=== PATIENT | female | born 1965 | race Caucasian/White ===

== ENCOUNTER 2017-08-20 16:21 | Inpatient (IN) | payer OTHER ==
[2017-08-20] MEDS: VANCOMYCIN 1 GM (PMX) 250 ML IVPB (22:30)
[2017-08-21 00:01] LABS: ADD UMIC YES; UR ASCORBIC ACID NEGATIVE (NEGATIVE); UR BACTERIA MODERATE /HPF (NONE SEEN); UR BILIRUBIN (Dip) NEGATIVE (NEGATIVE); UR BLOOD (Dip) NEGATIVE (NEGATIVE); UR CLARITY SLIGHTLY CLOUDY (CLEAR); UR COLOR AMBER (YELLOW); UR GLUCOSE (Dip) NEGATIVE (NEGATIVE); UR KETONES (Dip) NEGATIVE (NEGATIVE); UR LEUKOCYTE ESTERASE (Dip) 1+ Leu/ul (NEGATIVE); UR NITRITE (Dip) POSITIVE (NEGATIVE); UR RBC 3 /HPF (0-5); UR SPECIFIC GRAVITY (Dip) 1.017 (1.003-1.030); UR SQUAMOUS EPITHELIAL CELL FEW /HPF (FEW); UR TOTAL PROTEIN (Dip) NEGATIVE (NEGATIVE); UR UROBILINOGEN (Dip) 2+ mg/dL (NEGATIVE); UR WBC 16 /HPF (0-5)
[2017-08-21 00:39] LABS: BASOPHILS % 0.4 % (0.0-2.0); EOSINOPHILS # 0.1 10^3/ul (0.0-0.5); EOSINOPHILS % 1.5 % (0.0-7.0); HEMATOCRIT 33.1 % (37.0-47.0); LYMPHOCYTES # 2.4 10^3/ul (0.8-2.9); LYMPHOCYTES % 35.5 % (15.0-51.0); MEAN CORPUSCULAR HGB CONC 33.2 g/dl (32.0-37.0); MEAN CORPUSCULAR VOLUME 87.3 fl (82.0-101.0); MEAN PLATELET VOLUME 9.2 fl (7.4-10.4); MONOCYTE # 0.4 10^3/ul (0.3-0.9); MONOCYTES % 5.6 % (0.0-11.0); NEUTROPHIL # 3.8 10^3/ul (1.6-7.5); NEUTROPHILS % 56.9 % (39.0-77.0); PLATELET COUNT 210 10^3/UL (140-415); RED BLOOD COUNT 3.79 10^6/ul (4.20-5.40)
[2017-08-21 00:39] LABS: WHITE BLOOD COUNT 6.7 10^3/ul (4.8-10.8)
[2017-08-21 00:40] LABS: ADD MAN DIFF? NO
[2017-08-21 00:47] LABS: ALANINE AMINOTRANSFERASE 40 IU/L (13-69); ALBUMIN 2.9 g/dl (3.3-4.9); ALBUMIN/GLOBULIN RATIO 0.56; ALKALINE PHOSPHATASE 181 IU/L (42-121); ANION GAP 13 (8-16); ASPARTATE AMINO TRANSFERASE 69 IU/L (15-46); BILIRUBIN,INDIRECT 0.3 mg/dl (0-1.1); BILIRUBIN,TOTAL 0.3 mg/dl (0.2-1.3); BLOOD UREA NITROGEN 10 mg/dl (7-20); CALCIUM 8.7 mg/dl (8.4-10.2); CARBON DIOXIDE 22 mmol/L (21-31); CHLORIDE 109 mmol/L (97-110); CREATININE 0.69 mg/dl (0.44-1.00); GLUCOSE 98 mg/dl (70-220); LIPASE 106 U/L (23-300); POTASSIUM 3.9 mmol/L (3.5-5.1); SODIUM 140 mmol/L (135-144)
[2017-08-21] MEDS ORDERED: ONDANSETRON 4 MG INJ IV (01:00)
[2017-08-21] MEDS ORDERED: ACETAMINOPHEN 325 MG TAB PO (01:00)
[2017-08-21] MEDS: FENTAnyl 50 MCG/ML VIAL IV (01:27)
[2017-08-21] MEDS: CEFEPIME 1GM/50 ML (PMX) 50 ML IVPB (01:40)
[2017-08-21 01:52] LABS: C-REACTIVE PROTEIN > 1.5 mg/dl (0.0-0.9)
[2017-08-21 02:27] LABS: ERYTHROCYTE SEDIMENTATION RATE 65 mm/Hr (0-30)
[2017-08-21] MEDS ORDERED: VANCOMYCIN IV PER PHARMACY XX (05:30)
[2017-08-21] MEDS: PIPER-TAZO 3.375 GM IV (PMX) 50 ML IVPB ×4 (07:05→23:46)
[2017-08-21] MEDS: VANCOMYCIN 1.5 GM in DEXTROSE 5% 500 ML IVPB (08:56)
[2017-08-21] MEDS: morphine 4 MG/ML VIAL IV ×3 (08:57→20:26)
[2017-08-21] MEDS: BACLOFEN 10 MG TAB PO ×2 (12:54→20:25)
[2017-08-21] MEDS: LEVETIRACETAM 250 MG TAB PO ×2 (12:54→20:25)
[2017-08-21] MEDS: GABAPENTIN 300 MG CAP PO ×2 (12:54→20:25)
[2017-08-21] MEDS: ALPRAZOLAM 0.5 MG TAB PO (12:54)
[2017-08-21] MEDS: NICOTINE (21 MG/24 HR) PATCH TRANSDERM (12:55)
[2017-08-21 16:25] LABS: ADD MAN DIFF? NO
[2017-08-21 16:27] LABS: BASOPHILS % 0.5 % (0.0-2.0); EOSINOPHILS % 0.7 % (0.0-7.0); HEMATOCRIT 31.6 % (37.0-47.0); HEMOGLOBIN 10.6 g/dl (12.0-16.0); LYMPHOCYTES # 1.5 10^3/ul (0.8-2.9); LYMPHOCYTES % 26.4 % (15.0-51.0); MEAN CORPUSCULAR HEMOGLOBIN 29.2 pg (29.0-33.0); MEAN CORPUSCULAR HGB CONC 33.5 g/dl (32.0-37.0); MEAN CORPUSCULAR VOLUME 87.1 fl (82.0-101.0); MEAN PLATELET VOLUME 8.8 fl (7.4-10.4); MONOCYTE # 0.4 10^3/ul (0.3-0.9); MONOCYTES % 6.7 % (0.0-11.0); NEUTROPHIL # 3.7 10^3/ul (1.6-7.5); NEUTROPHILS % 65.3 % (39.0-77.0); PLATELET COUNT 189 10^3/UL (140-415); RED BLOOD COUNT 3.63 10^6/ul (4.20-5.40)
[2017-08-21 16:27] LABS: WHITE BLOOD COUNT 5.7 10^3/ul (4.8-10.8)
[2017-08-21 16:50] LABS: ALANINE AMINOTRANSFERASE 40 IU/L (13-69); ALBUMIN 2.8 g/dl (3.3-4.9); ALBUMIN/GLOBULIN RATIO 0.57; ALKALINE PHOSPHATASE 178 IU/L (42-121); ANION GAP 13 (8-16); ASPARTATE AMINO TRANSFERASE 61 IU/L (15-46); BILIRUBIN,INDIRECT 0.5 mg/dl (0-1.1); BILIRUBIN,TOTAL 0.5 mg/dl (0.2-1.3); BLOOD UREA NITROGEN 7 mg/dl (7-20); CALCIUM 8.6 mg/dl (8.4-10.2); CARBON DIOXIDE 20 mmol/L (21-31); CHLORIDE 110 mmol/L (97-110); CREATININE 0.66 mg/dl (0.44-1.00); GLUCOSE 94 mg/dl (70-220); SODIUM 139 mmol/L (135-144); TOTAL PROTEIN 7.7 g/dl (6.1-8.1)
[2017-08-21] MEDS: AMITRIPTYLINE 25 MG TAB PO (20:25)
[2017-08-21] MEDS: DOCUSATE SODIUM 100 MG CAP PO (20:25)
[2017-08-21] MEDS: HYDROmorphONE 2 MG TAB PO (22:00)
[2017-08-22] MEDS: ALPRAZOLAM 0.5 MG TAB PO (00:47)
[2017-08-22] MEDS: morphine 4 MG/ML VIAL IV (00:47)
[2017-08-22 01:39] LABS: AMPHETAMINE/METHAMPHETAMINE Negative (NEGATIVE); BARBITURATES Negative (NEGATIVE); BENZODIAZEPINES Positive (NEGATIVE); CANNABINOIDS Positive (NEGATIVE); COCAINE Negative (NEGATIVE); OPIATES Positive (NEGATIVE)
[2017-08-22] MEDS: HYDROCODONE/APAP (10/325) TAB PO (02:46)
[2017-08-22] MEDS: PIPER-TAZO 3.375 GM IV (PMX) 50 ML IVPB ×3 (06:05→17:03)
[2017-08-22] MEDS: DOCUSATE SODIUM 100 MG CAP PO ×2 (08:35→21:15)
[2017-08-22] MEDS: GABAPENTIN 300 MG CAP PO ×3 (08:35→21:15)
[2017-08-22] MEDS: LEVETIRACETAM 250 MG TAB PO ×2 (08:35→21:15)
[2017-08-22] MEDS: VANCOMYCIN 1.5 GM in DEXTROSE 5% 500 ML IVPB (08:35)
[2017-08-22] MEDS: NICOTINE (21 MG/24 HR) PATCH TRANSDERM (11:50)
[2017-08-22] MEDS: HYDROmorphONE 2 MG TAB PO ×2 (12:16→18:03)
[2017-08-22] MEDS: BACLOFEN 10 MG TAB PO (15:18)
[2017-08-22] MEDS: AMITRIPTYLINE 25 MG TAB PO (21:15)
[2017-08-23] MEDS: PIPER-TAZO 3.375 GM IV (PMX) 50 ML IVPB ×4 (00:19→17:44)
[2017-08-23] MEDS: ALPRAZOLAM 0.5 MG TAB PO (04:39)
[2017-08-23 05:55] LABS: ADD MAN DIFF? NO
[2017-08-23 06:00] LABS: BASOPHILS % 0.8 % (0.0-2.0); EOSINOPHILS # 0.1 10^3/ul (0.0-0.5); EOSINOPHILS % 1.8 % (0.0-7.0); HEMOGLOBIN 10.5 g/dl (12.0-16.0); LYMPHOCYTES # 1.5 10^3/ul (0.8-2.9); LYMPHOCYTES % 31.2 % (15.0-51.0); MEAN CORPUSCULAR HEMOGLOBIN 29.2 pg (29.0-33.0); MEAN CORPUSCULAR HGB CONC 33.9 g/dl (32.0-37.0); MEAN CORPUSCULAR VOLUME 86.4 fl (82.0-101.0); MONOCYTE # 0.5 10^3/ul (0.3-0.9); MONOCYTES % 9.3 % (0.0-11.0); NEUTROPHIL # 2.8 10^3/ul (1.6-7.5); NEUTROPHILS % 56.7 % (39.0-77.0); PLATELET COUNT 165 10^3/UL (140-415); RED BLOOD COUNT 3.59 10^6/ul (4.20-5.40)
[2017-08-23 06:00] LABS: WHITE BLOOD COUNT 4.9 10^3/ul (4.8-10.8)
[2017-08-23] MEDS: HYDROmorphONE 2 MG TAB PO ×3 (06:35→18:26)
[2017-08-23 07:10] LABS: ANION GAP 14 (8-16); BLOOD UREA NITROGEN 7 mg/dl (7-20); CALCIUM 8.1 mg/dl (8.4-10.2); CARBON DIOXIDE 20 mmol/L (21-31); CHLORIDE 111 mmol/L (97-110); CREATININE 0.62 mg/dl (0.44-1.00); GLUCOSE 65 mg/dl (70-220); POTASSIUM 3.5 mmol/L (3.5-5.1); SODIUM 141 mmol/L (135-144)
[2017-08-23] MEDS: VANCOMYCIN 1.5 GM in DEXTROSE 5% 500 ML IVPB (08:13)
[2017-08-23] MEDS: DOCUSATE SODIUM 100 MG CAP PO ×2 (08:13→21:39)
[2017-08-23] MEDS: LEVETIRACETAM 250 MG TAB PO ×2 (08:13→21:39)
[2017-08-23] MEDS: GABAPENTIN 300 MG CAP PO ×3 (08:13→21:39)
[2017-08-23] MEDS: NICOTINE (21 MG/24 HR) PATCH TRANSDERM (11:20)
[2017-08-23] MEDS: BACLOFEN 10 MG TAB PO ×2 (11:40→21:39)
[2017-08-23] MEDS ORDERED: LIDOCAINE 1% (MPF) 5 ML VIAL SC (12:30)
[2017-08-23] MEDS: AMITRIPTYLINE 25 MG TAB PO (21:39)
[2017-08-24] MEDS: PIPER-TAZO 3.375 GM IV (PMX) 50 ML IVPB ×4 (01:05→18:42)
[2017-08-24] MEDS: HYDROmorphONE 2 MG TAB PO ×3 (05:03→21:34)
[2017-08-24 07:41] LABS: ADD MAN DIFF? NO
[2017-08-24 08:00] LABS: WHITE BLOOD COUNT 5.8 10^3/ul (4.8-10.8)
[2017-08-24 08:00] LABS: BASOPHILS % 0.5 % (0.0-2.0); EOSINOPHILS % 0.7 % (0.0-7.0); HEMOGLOBIN 10.9 g/dl (12.0-16.0); LYMPHOCYTES # 1.2 10^3/ul (0.8-2.9); LYMPHOCYTES % 21.2 % (15.0-51.0); MEAN CORPUSCULAR HEMOGLOBIN 29.1 pg (29.0-33.0); MEAN CORPUSCULAR HGB CONC 34.1 g/dl (32.0-37.0); MEAN CORPUSCULAR VOLUME 85.3 fl (82.0-101.0); MEAN PLATELET VOLUME 9.2 fl (7.4-10.4); MONOCYTE # 0.4 10^3/ul (0.3-0.9); MONOCYTES % 7.1 % (0.0-11.0); NEUTROPHIL # 4.1 10^3/ul (1.6-7.5); NEUTROPHILS % 70.2 % (39.0-77.0); PLATELET COUNT 171 10^3/UL (140-415); RED BLOOD COUNT 3.75 10^6/ul (4.20-5.40); RED CELL DISTRIBUTION WIDTH 14.9 % (11.5-14.5)
[2017-08-24 08:18] LABS: ANION GAP 13 (8-16); BLOOD UREA NITROGEN 5 mg/dl (7-20); CALCIUM 8.5 mg/dl (8.4-10.2); CARBON DIOXIDE 21 mmol/L (21-31); CHLORIDE 109 mmol/L (97-110); CREATININE 0.58 mg/dl (0.44-1.00); GLUCOSE 111 mg/dl (70-220); POTASSIUM 3.4 mmol/L (3.5-5.1); SODIUM 140 mmol/L (135-144)
[2017-08-24 08:20] LABS: VANCOMYCIN,TROUGH 12.2 ug/ml (10.0-20.0)
[2017-08-24] MEDS: GABAPENTIN 300 MG CAP PO ×3 (09:08→21:29)
[2017-08-24] MEDS: DOCUSATE SODIUM 100 MG CAP PO ×2 (09:08→21:29)
[2017-08-24] MEDS: VANCOMYCIN 1.5 GM in DEXTROSE 5% 500 ML IVPB (09:08)
[2017-08-24] MEDS: LEVETIRACETAM 250 MG TAB PO ×2 (10:49→21:29)
[2017-08-24] MEDS: clonAZEPAM 0.5 MG TAB PO ×2 (10:49→21:30)
[2017-08-24 12:13] LABS: INR 1.23; PROTIME 15.7 Sec (11.9-14.9); PT RATIO 1.2
[2017-08-24 13:03] LABS: HEPATITIS B SURFACE ANTIGEN NEGATIVE (NEGATIVE)
[2017-08-24 13:42] LABS: HEPATITIS C VIRAL ANTIBODY REACTIVE (NEGATIVE)
[2017-08-24] MEDS: LIDOCAINE 1% (MDV) 20 ML INJ (14:00)
[2017-08-24 14:43] LABS: PARTIAL THROMBOPLASTIN TIME 28.8 Sec (25.0-35.0)
[2017-08-24] MEDS: NICOTINE (21 MG/24 HR) PATCH TRANSDERM (16:55)
[2017-08-24] MEDS: AMITRIPTYLINE 25 MG TAB PO (21:29)
[2017-08-25] MEDS: PIPER-TAZO 3.375 GM IV (PMX) 50 ML IVPB ×5 (00:21→23:09)
[2017-08-25 05:24] LABS: ADD MAN DIFF? NO
[2017-08-25 05:30] LABS: WHITE BLOOD COUNT 5.4 10^3/ul (4.8-10.8)
[2017-08-25 05:30] LABS: BASOPHILS % 0.7 % (0.0-2.0); EOSINOPHILS # 0.1 10^3/ul (0.0-0.5); EOSINOPHILS % 1.5 % (0.0-7.0); HEMATOCRIT 30.8 % (37.0-47.0); HEMOGLOBIN 10.4 g/dl (12.0-16.0); LYMPHOCYTES # 1.8 10^3/ul (0.8-2.9); LYMPHOCYTES % 32.3 % (15.0-51.0); MEAN CORPUSCULAR HEMOGLOBIN 29.3 pg (29.0-33.0); MEAN CORPUSCULAR HGB CONC 33.8 g/dl (32.0-37.0); MEAN CORPUSCULAR VOLUME 86.8 fl (82.0-101.0); MEAN PLATELET VOLUME 9.1 fl (7.4-10.4); MONOCYTE # 0.5 10^3/ul (0.3-0.9); MONOCYTES % 9.6 % (0.0-11.0); NEUTROPHILS % 55.7 % (39.0-77.0); PLATELET COUNT 145 10^3/UL (140-415); RED BLOOD COUNT 3.55 10^6/ul (4.20-5.40); RED CELL DISTRIBUTION WIDTH 15.3 % (11.5-14.5)
[2017-08-25 06:04] LABS: ANION GAP 14 (8-16); BLOOD UREA NITROGEN 6 mg/dl (7-20); CALCIUM 8.6 mg/dl (8.4-10.2); CARBON DIOXIDE 22 mmol/L (21-31); CHLORIDE 110 mmol/L (97-110); CREATININE 0.62 mg/dl (0.44-1.00); GLUCOSE 69 mg/dl (70-220); POTASSIUM 3.4 mmol/L (3.5-5.1); SODIUM 143 mmol/L (135-144)
[2017-08-25] MEDS: VANCOMYCIN 1.5 GM in DEXTROSE 5% 500 ML IVPB ×2 (08:00→17:23)
[2017-08-25] MEDS: LEVETIRACETAM 250 MG TAB PO ×2 (08:18→20:18)
[2017-08-25] MEDS: HYDROmorphONE 2 MG TAB PO ×2 (08:18→19:13)
[2017-08-25] MEDS: DOCUSATE SODIUM 100 MG CAP PO ×2 (08:18→20:18)
[2017-08-25] MEDS: GABAPENTIN 300 MG CAP PO ×3 (08:18→20:18)
[2017-08-25] MEDS: clonAZEPAM 0.5 MG TAB PO ×2 (08:20→20:20)
[2017-08-25] MEDS: POTASSIUM CHLORIDE (SR) 20 MEQ TAB PO (10:36)
[2017-08-25] MEDS: NICOTINE (21 MG/24 HR) PATCH TRANSDERM (10:37)
[2017-08-25] MEDS: BACLOFEN 10 MG TAB PO (20:23)
[2017-08-25] MEDS: AMITRIPTYLINE 25 MG TAB PO (20:23)
[2017-08-26] MEDS: POLYETHYLENE GLYCOL 17 GM PACKET PO (05:01)
[2017-08-26] MEDS: PIPER-TAZO 3.375 GM IV (PMX) 50 ML IVPB (05:01)
[2017-08-26] MEDS: HYDROmorphONE 2 MG TAB PO ×3 (05:30→20:46)
[2017-08-26] MEDS: ALPRAZOLAM 0.5 MG TAB PO ×2 (05:30→16:54)
[2017-08-26 05:34] LABS: ADD MAN DIFF? NO
[2017-08-26 05:40] LABS: BASOPHILS % 0.6 % (0.0-2.0); EOSINOPHILS # 0.1 10^3/ul (0.0-0.5); EOSINOPHILS % 1.9 % (0.0-7.0); HEMATOCRIT 32.4 % (37.0-47.0); HEMOGLOBIN 10.5 g/dl (12.0-16.0); LYMPHOCYTES # 1.4 10^3/ul (0.8-2.9); LYMPHOCYTES % 29.1 % (15.0-51.0); MEAN CORPUSCULAR HEMOGLOBIN 29.2 pg (29.0-33.0); MEAN CORPUSCULAR HGB CONC 32.4 g/dl (32.0-37.0); MEAN PLATELET VOLUME 9.5 fl (7.4-10.4); MONOCYTE # 0.5 10^3/ul (0.3-0.9); MONOCYTES % 10.3 % (0.0-11.0); NEUTROPHIL # 2.8 10^3/ul (1.6-7.5); NEUTROPHILS % 57.9 % (39.0-77.0); PLATELET COUNT 144 10^3/UL (140-415); RED CELL DISTRIBUTION WIDTH 15.6 % (11.5-14.5)
[2017-08-26 05:40] LABS: WHITE BLOOD COUNT 4.9 10^3/ul (4.8-10.8)
[2017-08-26 06:18] LABS: ANION GAP 10 (8-16); BLOOD UREA NITROGEN 4 mg/dl (7-20); CALCIUM 8.3 mg/dl (8.4-10.2); CARBON DIOXIDE 23 mmol/L (21-31); CHLORIDE 110 mmol/L (97-110); CREATININE 0.55 mg/dl (0.44-1.00); GLUCOSE 100 mg/dl (70-220); POTASSIUM 3.4 mmol/L (3.5-5.1); SODIUM 140 mmol/L (135-144)
[2017-08-26] MEDS: LEVETIRACETAM 250 MG TAB PO ×2 (08:42→20:46)
[2017-08-26] MEDS: GABAPENTIN 300 MG CAP PO ×3 (08:42→20:46)
[2017-08-26] MEDS: DOCUSATE SODIUM 100 MG CAP PO ×2 (08:43→20:45)
[2017-08-26] MEDS: clonAZEPAM 0.5 MG TAB PO (08:47)
[2017-08-26] MEDS: BACLOFEN 10 MG TAB PO ×2 (08:47→20:51)
[2017-08-26] MEDS: CEFTRIAXONE 1 GM/50 ML (PMX) 50 ML IVPB (09:52)
[2017-08-26] MEDS: NICOTINE (21 MG/24 HR) PATCH TRANSDERM (11:04)
[2017-08-26] MEDS: VANCOMYCIN 1.5 GM in DEXTROSE 5% 500 ML IVPB (17:29)
[2017-08-26] MEDS: AMITRIPTYLINE 25 MG TAB PO (20:45)
[2017-08-27] MEDS: ALPRAZOLAM 0.5 MG TAB PO ×2 (00:03→09:39)
[2017-08-27] MEDS: POLYETHYLENE GLYCOL 17 GM PACKET PO (04:38)
[2017-08-27] MEDS: HYDROmorphONE 2 MG TAB PO ×2 (04:38→13:57)
[2017-08-27] MEDS: BACLOFEN 10 MG TAB PO ×2 (04:39→16:48)
[2017-08-27 05:04] LABS: ADD MAN DIFF? NO
[2017-08-27 05:14] LABS: WHITE BLOOD COUNT 4.8 10^3/ul (4.8-10.8)
[2017-08-27 05:14] LABS: BASOPHILS % 0.6 % (0.0-2.0); EOSINOPHILS # 0.1 10^3/ul (0.0-0.5); EOSINOPHILS % 1.9 % (0.0-7.0); HEMATOCRIT 32.8 % (37.0-47.0); HEMOGLOBIN 10.7 g/dl (12.0-16.0); LYMPHOCYTES # 1.4 10^3/ul (0.8-2.9); LYMPHOCYTES % 29.8 % (15.0-51.0); MEAN CORPUSCULAR HEMOGLOBIN 29.1 pg (29.0-33.0); MEAN CORPUSCULAR HGB CONC 32.6 g/dl (32.0-37.0); MEAN CORPUSCULAR VOLUME 89.1 fl (82.0-101.0); MEAN PLATELET VOLUME 9.2 fl (7.4-10.4); MONOCYTE # 0.5 10^3/ul (0.3-0.9); MONOCYTES % 10.4 % (0.0-11.0); NEUTROPHIL # 2.8 10^3/ul (1.6-7.5); NEUTROPHILS % 56.9 % (39.0-77.0); PLATELET COUNT 137 10^3/UL (140-415); RED BLOOD COUNT 3.68 10^6/ul (4.20-5.40); RED CELL DISTRIBUTION WIDTH 16.1 % (11.5-14.5)
[2017-08-27 05:50] LABS: ANION GAP 9 (8-16); BLOOD UREA NITROGEN 3 mg/dl (7-20); CALCIUM 8.7 mg/dl (8.4-10.2); CARBON DIOXIDE 25 mmol/L (21-31); CHLORIDE 111 mmol/L (97-110); CREATININE 0.54 mg/dl (0.44-1.00); GLUCOSE 104 mg/dl (70-220); POTASSIUM 3.4 mmol/L (3.5-5.1); SODIUM 142 mmol/L (135-144)
[2017-08-27] MEDS: LEVETIRACETAM 250 MG TAB PO ×2 (09:34→20:26)
[2017-08-27] MEDS: GABAPENTIN 300 MG CAP PO ×3 (09:34→20:26)
[2017-08-27] MEDS: DOCUSATE SODIUM 100 MG CAP PO ×2 (09:34→20:25)
[2017-08-27] MEDS: CEFTRIAXONE 1 GM/50 ML (PMX) 50 ML IVPB (09:39)
[2017-08-27] MEDS: NICOTINE (21 MG/24 HR) PATCH TRANSDERM (13:57)
[2017-08-27] MEDS: VANCOMYCIN 1.5 GM in DEXTROSE 5% 500 ML IVPB (17:10)
[2017-08-27] MEDS: AMITRIPTYLINE 25 MG TAB PO (20:26)
[2017-08-28] MEDS: ALPRAZOLAM 0.5 MG TAB PO ×2 (00:10→13:37)
[2017-08-28] MEDS: HYDROmorphONE 2 MG TAB PO ×3 (00:10→18:23)
[2017-08-28] MEDS: BACLOFEN 10 MG TAB PO ×2 (05:12→21:04)
[2017-08-28] MEDS: POLYETHYLENE GLYCOL 17 GM PACKET PO (05:12)
[2017-08-28] MEDS: DOCUSATE SODIUM 100 MG CAP PO ×2 (09:32→20:58)
[2017-08-28] MEDS: GABAPENTIN 300 MG CAP PO ×3 (09:32→20:58)
[2017-08-28] MEDS: LEVETIRACETAM 250 MG TAB PO ×2 (09:32→20:58)
[2017-08-28] MEDS: CEFTRIAXONE 1 GM/50 ML (PMX) 50 ML IVPB (09:32)
[2017-08-28] MEDS: NICOTINE (21 MG/24 HR) PATCH TRANSDERM (10:53)
[2017-08-28] MEDS: FENTAnyl PATCH 75 MCG/HR TRANSDERM (11:09)
[2017-08-28 17:26] LABS: VANCOMYCIN,TROUGH 11.2 ug/ml (10.0-20.0)
[2017-08-28] MEDS: VANCOMYCIN 1.5 GM in DEXTROSE 5% 500 ML IVPB (18:23)
[2017-08-28] MEDS: AMITRIPTYLINE 25 MG TAB PO (20:58)
[2017-08-29] MEDS: ALPRAZOLAM 0.5 MG TAB PO ×3 (00:51→18:25)
[2017-08-29] MEDS: HYDROmorphONE 2 MG TAB PO ×3 (00:52→18:25)
[2017-08-29] MEDS: DOCUSATE SODIUM 100 MG CAP PO ×2 (08:31→21:29)
[2017-08-29] MEDS: LEVETIRACETAM 250 MG TAB PO ×2 (08:31→21:29)
[2017-08-29] MEDS: GABAPENTIN 300 MG CAP PO ×3 (08:31→21:29)
[2017-08-29] MEDS: CEFTRIAXONE 1 GM/50 ML (PMX) 50 ML IVPB (08:32)
[2017-08-29] MEDS: NICOTINE (21 MG/24 HR) PATCH TRANSDERM (12:58)
[2017-08-29] MEDS ORDERED: VANCOMYCIN 1.75 GM in NS 500 ML IVPB (18:00)
[2017-08-29] MEDS: AMITRIPTYLINE 25 MG TAB PO (21:29)
[2017-08-29] MEDS: VANCOMYCIN 1.75 GM in DEXTROSE 5% 500 ML IVPB (21:29)
[2017-08-30 06:03] LABS: BLOOD UREA NITROGEN 8 mg/dl (7-20)
[2017-08-30 06:03] LABS: CREATININE 0.58 mg/dl (0.44-1.00)
[2017-08-30] MEDS: HYDROmorphONE 2 MG TAB PO ×2 (06:49→16:04)
[2017-08-30] MEDS: ALPRAZOLAM 0.5 MG TAB PO ×2 (06:53→20:56)
[2017-08-30] MEDS ORDERED: VANCOMYCIN 1.75 GM in SOD CHLORIDE 0.9% 500 ML IVPB (08:58)
[2017-08-30] MEDS: CEFTRIAXONE 1 GM/50 ML (PMX) 50 ML IVPB (09:25)
[2017-08-30] MEDS: GABAPENTIN 300 MG CAP PO ×3 (09:25→20:56)
[2017-08-30] MEDS: DOCUSATE SODIUM 100 MG CAP PO ×2 (09:25→20:56)
[2017-08-30] MEDS: LEVETIRACETAM 250 MG TAB PO ×2 (09:25→20:57)
[2017-08-30] MEDS: NICOTINE (21 MG/24 HR) PATCH TRANSDERM (10:45)
[2017-08-30] MEDS: BACLOFEN 10 MG TAB PO ×2 (16:07→22:03)
[2017-08-30] MEDS: VANCOMYCIN 1.75 GM in SOD CHLORIDE 0.9% 500 ML IVPB (18:12)
[2017-08-30] MEDS: AMITRIPTYLINE 25 MG TAB PO (20:56)
[2017-08-31] MEDS: HYDROmorphONE 2 MG TAB PO ×3 (01:59→15:37)
[2017-08-31 06:44] LABS: ALBUMIN 2.6 g/dl (3.3-4.9); ANION GAP 11 (8-16); BLOOD UREA NITROGEN 8 mg/dl (7-20); CALCIUM 8.2 mg/dl (8.4-10.2); CARBON DIOXIDE 24 mmol/L (21-31); CHLORIDE 109 mmol/L (97-110); CREATININE 0.61 mg/dl (0.44-1.00); GLUCOSE 119 mg/dl (70-220); MAGNESIUM 1.8 mg/dl (1.7-2.5); PHOSPHORUS 3.6 mg/dl (2.5-4.9); POTASSIUM 3.4 mmol/L (3.5-5.1); SODIUM 141 mmol/L (135-144)
[2017-08-31] MEDS: GABAPENTIN 300 MG CAP PO ×3 (08:00→20:49)
[2017-08-31] MEDS: DOCUSATE SODIUM 100 MG CAP PO ×2 (08:00→20:49)
[2017-08-31] MEDS: ALPRAZOLAM 0.5 MG TAB PO (08:00)
[2017-08-31] MEDS: LEVETIRACETAM 250 MG TAB PO ×2 (08:00→20:49)
[2017-08-31] MEDS: CEFTRIAXONE 1 GM/50 ML (PMX) 50 ML IVPB (10:05)
[2017-08-31] MEDS: NICOTINE (21 MG/24 HR) PATCH TRANSDERM (11:38)
[2017-08-31] MEDS: FENTAnyl PATCH 75 MCG/HR TRANSDERM (11:39)
[2017-08-31] MEDS: BACLOFEN 10 MG TAB PO (15:33)
[2017-08-31] MEDS: SOD CHLORIDE 0.9% IVPB (15:38)
[2017-08-31] MEDS: DAPTOMYCIN IVPB (15:38)
[2017-08-31] MEDS: AMITRIPTYLINE 25 MG TAB PO (20:49)
[2017-08-31] MEDS: CARBAMIDE PEROXIDE 6.5% 15ML OTIC BOTH EARS (20:49)
[2017-09-01] MEDS: ALPRAZOLAM 0.5 MG TAB PO ×3 (00:17→20:28)
[2017-09-01] MEDS: HYDROmorphONE 2 MG TAB PO ×4 (00:18→18:58)
[2017-09-01] MEDS: BACLOFEN 10 MG TAB PO ×3 (01:35→20:28)
[2017-09-01 07:09] LABS: CREATINE KINASE 115 IU/L (23-200)
[2017-09-01] MEDS: DOCUSATE SODIUM 100 MG CAP PO ×2 (08:17→20:28)
[2017-09-01] MEDS: GABAPENTIN 300 MG CAP PO ×3 (08:17→20:28)
[2017-09-01] MEDS: LEVETIRACETAM 250 MG TAB PO ×2 (08:17→20:28)
[2017-09-01] MEDS: CARBAMIDE PEROXIDE 6.5% 15ML OTIC BOTH EARS ×3 (08:20→20:29)
[2017-09-01] MEDS: CEFTRIAXONE 1 GM/50 ML (PMX) 50 ML IVPB (09:42)
[2017-09-01] MEDS: NICOTINE (21 MG/24 HR) PATCH TRANSDERM (11:53)
[2017-09-01] MEDS: DAPTOMYCIN IVPB (15:11)
[2017-09-01] MEDS: SOD CHLORIDE 0.9% IVPB (15:11)
[2017-09-01] MEDS: AMITRIPTYLINE 25 MG TAB PO (20:28)
[2017-09-02] MEDS: HYDROmorphONE 2 MG TAB PO ×3 (06:45→22:51)
[2017-09-02] MEDS: LEVETIRACETAM 250 MG TAB PO ×2 (08:19→19:48)
[2017-09-02] MEDS: ALPRAZOLAM 0.5 MG TAB PO ×2 (08:19→18:48)
[2017-09-02] MEDS: GABAPENTIN 300 MG CAP PO ×3 (08:19→19:48)
[2017-09-02] MEDS: DOCUSATE SODIUM 100 MG CAP PO ×2 (08:19→19:48)
[2017-09-02] MEDS: CARBAMIDE PEROXIDE 6.5% 15ML OTIC BOTH EARS ×2 (08:20→19:47)
[2017-09-02] MEDS: CEFTRIAXONE 1 GM/50 ML (PMX) 50 ML IVPB (09:08)
[2017-09-02] MEDS: NICOTINE (21 MG/24 HR) PATCH TRANSDERM (10:52)
[2017-09-02] MEDS: DAPTOMYCIN IVPB (15:02)
[2017-09-02] MEDS: SOD CHLORIDE 0.9% IVPB (15:02)
[2017-09-02] MEDS: PANTOPRAZOLE (EC) 40 MG TAB PO (15:09)
[2017-09-02] MEDS: BACLOFEN 10 MG TAB PO (15:09)
[2017-09-02] MEDS ORDERED: POTASSIUM CHLORIDE 50 ML IVPB (18:30)
[2017-09-02 19:04] LABS: ADD UMIC YES; UR ASCORBIC ACID NEGATIVE (NEGATIVE); UR BILIRUBIN (Dip) NEGATIVE (NEGATIVE); UR BLOOD (Dip) 1+ mg/dL (NEGATIVE); UR CLARITY SLIGHTLY CLOUDY (CLEAR); UR COLOR YELLOW (YELLOW); UR GLUCOSE (Dip) NEGATIVE (NEGATIVE); UR KETONES (Dip) NEGATIVE (NEGATIVE); UR LEUKOCYTE ESTERASE (Dip) 3+ Leu/ul (NEGATIVE); UR NITRITE (Dip) NEGATIVE (NEGATIVE); UR RBC 7 /HPF (0-5); UR SQUAMOUS EPITHELIAL CELL FEW /HPF (FEW); UR TOTAL PROTEIN (Dip) NEGATIVE (NEGATIVE); UR UROBILINOGEN (Dip) NEGATIVE (NEGATIVE); UR WBC 110 /HPF (0-5)
[2017-09-02] MEDS: AMITRIPTYLINE 25 MG TAB PO (19:48)
[2017-09-02] MEDS: POTASSIUM CHLORIDE 50 ML IVPB ×2 (20:38→22:51)
[2017-09-03] MEDS: POTASSIUM CHLORIDE 50 ML IVPB (01:11)
[2017-09-03] MEDS: ALPRAZOLAM 0.5 MG TAB PO ×2 (04:34→23:57)
[2017-09-03 06:32] LABS: ADD MAN DIFF? NO
[2017-09-03 06:44] LABS: BASOPHIL # 0.1 10^3/ul (0.0-0.1); BASOPHILS % 0.8 % (0.0-2.0); EOSINOPHILS # 0.1 10^3/ul (0.0-0.5); EOSINOPHILS % 2.3 % (0.0-7.0); HEMATOCRIT 30.7 % (37.0-47.0); LYMPHOCYTES # 2.7 10^3/ul (0.8-2.9); LYMPHOCYTES % 45.7 % (15.0-51.0); MEAN CORPUSCULAR HEMOGLOBIN 29.9 pg (29.0-33.0); MEAN CORPUSCULAR HGB CONC 32.6 g/dl (32.0-37.0); MEAN CORPUSCULAR VOLUME 91.9 fl (82.0-101.0); MEAN PLATELET VOLUME 10.1 fl (7.4-10.4); MONOCYTE # 0.7 10^3/ul (0.3-0.9); MONOCYTES % 11.9 % (0.0-11.0); NEUTROPHIL # 2.3 10^3/ul (1.6-7.5); PLATELET COUNT 126 10^3/UL (140-415); RED BLOOD COUNT 3.34 10^6/ul (4.20-5.40); RED CELL DISTRIBUTION WIDTH 16.9 % (11.5-14.5)
[2017-09-03] MEDS: HYDROmorphONE 2 MG TAB PO ×3 (06:59→18:59)
[2017-09-03 07:27] LABS: ANION GAP 17 (8-16); BLOOD UREA NITROGEN 7 mg/dl (7-20); CALCIUM 8.2 mg/dl (8.4-10.2); CARBON DIOXIDE 22 mmol/L (21-31); CHLORIDE 110 mmol/L (97-110); CREATININE 0.61 mg/dl (0.44-1.00); GLUCOSE 115 mg/dl (70-220); POTASSIUM 4.5 mmol/L (3.5-5.1); SODIUM 144 mmol/L (135-144)
[2017-09-03] MEDS: CARBAMIDE PEROXIDE 6.5% 15ML OTIC BOTH EARS ×2 (08:28→20:14)
[2017-09-03] MEDS: LEVETIRACETAM 250 MG TAB PO ×2 (08:29→20:15)
[2017-09-03] MEDS: DOCUSATE SODIUM 100 MG CAP PO ×2 (08:29→20:15)
[2017-09-03] MEDS: GABAPENTIN 300 MG CAP PO ×3 (08:29→20:15)
[2017-09-03] MEDS: CEFTRIAXONE 1 GM/50 ML (PMX) 50 ML IVPB (08:30)
[2017-09-03] MEDS: BACLOFEN 10 MG TAB PO ×2 (08:30→18:59)
[2017-09-03] MEDS: FENTAnyl PATCH 75 MCG/HR TRANSDERM (09:28)
[2017-09-03] MEDS: NICOTINE (21 MG/24 HR) PATCH TRANSDERM (11:34)
[2017-09-03] MEDS: SOD CHLORIDE 0.9% IVPB (14:33)
[2017-09-03] MEDS: DAPTOMYCIN IVPB (14:33)
[2017-09-03] MEDS: AMITRIPTYLINE 25 MG TAB PO (20:15)
[2017-09-04] MEDS: HYDROmorphONE 2 MG TAB PO ×5 (03:08→23:25)
[2017-09-04 05:25] LABS: ADD MAN DIFF? NO
[2017-09-04 05:32] LABS: BASOPHILS % 0.6 % (0.0-2.0); EOSINOPHILS # 0.1 10^3/ul (0.0-0.5); EOSINOPHILS % 2.1 % (0.0-7.0); HEMATOCRIT 27.7 % (37.0-47.0); LYMPHOCYTES % 40.7 % (15.0-51.0); MEAN CORPUSCULAR HEMOGLOBIN 29.7 pg (29.0-33.0); MEAN CORPUSCULAR HGB CONC 32.5 g/dl (32.0-37.0); MEAN CORPUSCULAR VOLUME 91.4 fl (82.0-101.0); MEAN PLATELET VOLUME 10.2 fl (7.4-10.4); MONOCYTE # 0.6 10^3/ul (0.3-0.9); MONOCYTES % 13.1 % (0.0-11.0); NEUTROPHIL # 2.1 10^3/ul (1.6-7.5); NEUTROPHILS % 43.1 % (39.0-77.0); PLATELET COUNT 104 10^3/UL (140-415); RED BLOOD COUNT 3.03 10^6/ul (4.20-5.40); RED CELL DISTRIBUTION WIDTH 16.9 % (11.5-14.5)
[2017-09-04 05:32] LABS: WHITE BLOOD COUNT 4.9 10^3/ul (4.8-10.8)
[2017-09-04 06:01] LABS: ANION GAP 12 (8-16); BLOOD UREA NITROGEN 7 mg/dl (7-20); CALCIUM 8.6 mg/dl (8.4-10.2); CARBON DIOXIDE 25 mmol/L (21-31); CHLORIDE 109 mmol/L (97-110); CREATININE 0.66 mg/dl (0.44-1.00); GLUCOSE 118 mg/dl (70-220); POTASSIUM 3.7 mmol/L (3.5-5.1); SODIUM 142 mmol/L (135-144)
[2017-09-04] MEDS: DOCUSATE SODIUM 100 MG CAP PO ×2 (07:55→20:42)
[2017-09-04] MEDS: LEVETIRACETAM 250 MG TAB PO ×2 (08:46→20:33)
[2017-09-04] MEDS: CARBAMIDE PEROXIDE 6.5% 15ML OTIC BOTH EARS ×2 (08:46→20:34)
[2017-09-04] MEDS: GABAPENTIN 300 MG CAP PO ×3 (08:47→20:32)
[2017-09-04] MEDS: CEFTRIAXONE 1 GM/50 ML (PMX) 50 ML IVPB (08:47)
[2017-09-04] MEDS: ALPRAZOLAM 0.5 MG TAB PO ×2 (09:28→20:33)
[2017-09-04] MEDS: PANTOPRAZOLE (EC) 40 MG TAB PO (09:44)
[2017-09-04] MEDS: NICOTINE (21 MG/24 HR) PATCH TRANSDERM (12:31)
[2017-09-04] MEDS: BACLOFEN 10 MG TAB PO (15:27)
[2017-09-04] MEDS: FLUCONAZOLE 100 MG TAB PO (15:27)
[2017-09-04] MEDS: SOD CHLORIDE 0.9% IVPB (19:04)
[2017-09-04] MEDS: DAPTOMYCIN IVPB (19:04)
[2017-09-04] MEDS: AMITRIPTYLINE 25 MG TAB PO (20:38)
[2017-09-05] MEDS: ALPRAZOLAM 0.5 MG TAB PO ×2 (04:55→20:11)
[2017-09-05] MEDS: HYDROmorphONE 2 MG TAB PO ×3 (04:56→17:29)
[2017-09-05 05:14] LABS: ABNORMAL IP MESSAGE 1; HEMATOCRIT 25.1 % (37.0-47.0); HEMOGLOBIN 7.9 g/dl (12.0-16.0); MEAN CORPUSCULAR HGB CONC 31.5 g/dl (32.0-37.0); MEAN CORPUSCULAR VOLUME 92.3 fl (82.0-101.0); MEAN PLATELET VOLUME 9.9 fl (7.4-10.4); PLATELET COUNT 95 10^3/UL (140-415); RED BLOOD COUNT 2.72 10^6/ul (4.20-5.40); RED CELL DISTRIBUTION WIDTH 16.8 % (11.5-14.5)
[2017-09-05 05:14] LABS: WHITE BLOOD COUNT 3.5 10^3/ul (4.8-10.8)
[2017-09-05 05:29] LABS: ADD MAN DIFF? YES; POSITIVE DIFF @See below
[2017-09-05 06:05] LABS: ANION GAP 10 (8-16); BLOOD UREA NITROGEN 7 mg/dl (7-20); CALCIUM 7.2 mg/dl (8.4-10.2); CARBON DIOXIDE 22 mmol/L (21-31); CHLORIDE 115 mmol/L (97-110); CREATININE 0.52 mg/dl (0.44-1.00); GLUCOSE 87 mg/dl (70-220); POTASSIUM 3.4 mmol/L (3.5-5.1); SODIUM 144 mmol/L (135-144)
[2017-09-05] MEDS: FLUCONAZOLE 100 MG TAB PO (08:30)
[2017-09-05] MEDS: LEVETIRACETAM 250 MG TAB PO ×2 (08:30→20:12)
[2017-09-05] MEDS: DOCUSATE SODIUM 100 MG CAP PO ×2 (08:30→20:12)
[2017-09-05] MEDS: GABAPENTIN 300 MG CAP PO ×3 (08:30→20:11)
[2017-09-05] MEDS: CARBAMIDE PEROXIDE 6.5% 15ML OTIC BOTH EARS (08:31)
[2017-09-05] MEDS: CEFTRIAXONE 1 GM/50 ML (PMX) 50 ML IVPB (10:20)
[2017-09-05 10:32] LABS: ANISOCYTOSIS 1+ (0-0); BAND NEUTROPHILS % (M) 1 % (0-4); BASOPHIL #M 0.1 10^3/ul (0.0-0.0); BASOPHILS % (M) 3 % (0-2); EOSINOPHILS % (M) 2 % (0-7); LYMPHOCYTES #M 1.2 10^3/ul (0.8-2.9); LYMPHOCYTES % (M) 36 % (15-51); MONOCYTE #M 0.2 10^3/ul (0.3-0.9); MONOCYTES % (M) 7 % (0-11); PLATELET ESTIMATE DECREASED; SEG NEUT #M 1.8 10^3/ul (1.7-7.5); SEGMENTED NEUTROPHILS (M) % 51 % (39-77); SMUDGE%M 12 % (0-0)
[2017-09-05] MEDS: NICOTINE (21 MG/24 HR) PATCH TRANSDERM (12:45)
[2017-09-05] MEDS: DAPTOMYCIN IVPB (15:57)
[2017-09-05] MEDS: SOD CHLORIDE 0.9% IVPB (15:57)
[2017-09-05] MEDS: BACLOFEN 10 MG TAB PO (20:11)
[2017-09-05] MEDS: AMITRIPTYLINE 25 MG TAB PO (20:12)
[2017-09-06] MEDS: HYDROmorphONE 2 MG TAB PO ×4 (00:11→18:50)
[2017-09-06] MEDS: AMITRIPTYLINE 25 MG TAB PO ×2 (00:12→20:37)
[2017-09-06] MEDS: PANTOPRAZOLE (EC) 40 MG TAB PO (03:23)
[2017-09-06] MEDS: ALPRAZOLAM 0.5 MG TAB PO ×3 (03:27→21:02)
[2017-09-06 05:37] LABS: ADD MAN DIFF? NO
[2017-09-06 05:44] LABS: WHITE BLOOD COUNT 4.4 10^3/ul (4.8-10.8)
[2017-09-06 05:44] LABS: ABNORMAL IP MESSAGE 1; BASOPHILS % 0.5 % (0.0-2.0); EOSINOPHILS # 0.1 10^3/ul (0.0-0.5); EOSINOPHILS % 2.7 % (0.0-7.0); HEMATOCRIT 27.5 % (37.0-47.0); LYMPHOCYTES % 44.6 % (15.0-51.0); MEAN CORPUSCULAR HEMOGLOBIN 30.1 pg (29.0-33.0); MEAN CORPUSCULAR HGB CONC 32.7 g/dl (32.0-37.0); MEAN PLATELET VOLUME 9.9 fl (7.4-10.4); MONOCYTE # 0.5 10^3/ul (0.3-0.9); MONOCYTES % 11.9 % (0.0-11.0); NEUTROPHIL # 1.8 10^3/ul (1.6-7.5); NEUTROPHILS % 40.1 % (39.0-77.0); PLATELET COUNT 98 10^3/UL (140-415); RED BLOOD COUNT 2.99 10^6/ul (4.20-5.40); RED CELL DISTRIBUTION WIDTH 16.9 % (11.5-14.5)
[2017-09-06 06:00] LABS: POSITIVE DIFF @See below
[2017-09-06 06:26] LABS: ANION GAP 12 (8-16); BLOOD UREA NITROGEN 8 mg/dl (7-20); CALCIUM 8.3 mg/dl (8.4-10.2); CARBON DIOXIDE 25 mmol/L (21-31); CHLORIDE 109 mmol/L (97-110); CREATININE 0.68 mg/dl (0.44-1.00); GLUCOSE 103 mg/dl (70-220); POTASSIUM 3.8 mmol/L (3.5-5.1); SODIUM 142 mmol/L (135-144)
[2017-09-06] MEDS: DOCUSATE SODIUM 100 MG CAP PO ×2 (09:00→21:00)
[2017-09-06] MEDS: LEVETIRACETAM 250 MG TAB PO ×2 (09:35→20:34)
[2017-09-06] MEDS: CEFTRIAXONE 1 GM/50 ML (PMX) 50 ML IVPB (09:35)
[2017-09-06] MEDS: BACLOFEN 10 MG TAB PO ×2 (09:37→20:51)
[2017-09-06] MEDS: FLUCONAZOLE 100 MG TAB PO (09:37)
[2017-09-06] MEDS: GABAPENTIN 300 MG CAP PO ×3 (09:37→20:34)
[2017-09-06] MEDS: FENTAnyl PATCH 75 MCG/HR TRANSDERM (11:20)
[2017-09-06] MEDS: NICOTINE (21 MG/24 HR) PATCH TRANSDERM (14:40)
[2017-09-06] MEDS: DAPTOMYCIN IVPB (20:51)
[2017-09-06] MEDS: SOD CHLORIDE 0.9% IVPB (20:51)
[2017-09-07] MEDS: HYDROmorphONE 2 MG TAB PO ×4 (00:32→17:52)
[2017-09-07 05:24] LABS: ADD MAN DIFF? NO
[2017-09-07 05:35] LABS: HEMATOCRIT 28.2 % (37.0-47.0); RED BLOOD COUNT 3.08 10^6/ul (4.20-5.40)
[2017-09-07 05:36] LABS: BASOPHILS % 0.8 % (0.0-2.0); EOSINOPHILS # 0.1 10^3/ul (0.0-0.5); LYMPHOCYTES # 1.7 10^3/ul (0.8-2.9); LYMPHOCYTES % 43.8 % (15.0-51.0); MEAN CORPUSCULAR HEMOGLOBIN 29.2 pg (29.0-33.0); MEAN CORPUSCULAR HGB CONC 31.9 g/dl (32.0-37.0); MEAN CORPUSCULAR VOLUME 91.6 fl (82.0-101.0); MONOCYTE # 0.6 10^3/ul (0.3-0.9); MONOCYTES % 13.9 % (0.0-11.0); NEUTROPHIL # 1.6 10^3/ul (1.6-7.5); NEUTROPHILS % 39.2 % (39.0-77.0); PLATELET COUNT 114 10^3/UL (140-415); RED CELL DISTRIBUTION WIDTH 16.7 % (11.5-14.5)
[2017-09-07 06:09] LABS: ANION GAP 12 (8-16); BLOOD UREA NITROGEN 9 mg/dl (7-20); CALCIUM 8.5 mg/dl (8.4-10.2); CARBON DIOXIDE 27 mmol/L (21-31); CHLORIDE 108 mmol/L (97-110); CREATININE 0.69 mg/dl (0.44-1.00); GLUCOSE 103 mg/dl (70-220); POTASSIUM 3.9 mmol/L (3.5-5.1); SODIUM 143 mmol/L (135-144)
[2017-09-07] MEDS: ALPRAZOLAM 0.5 MG TAB PO ×2 (06:50→21:33)
[2017-09-07] MEDS: FLUCONAZOLE 100 MG TAB PO (08:29)
[2017-09-07] MEDS: LEVETIRACETAM 250 MG TAB PO ×2 (08:29→21:16)
[2017-09-07] MEDS: DOCUSATE SODIUM 100 MG CAP PO ×2 (08:29→21:16)
[2017-09-07] MEDS: GABAPENTIN 300 MG CAP PO ×3 (08:29→21:16)
[2017-09-07] MEDS: CEFTRIAXONE 1 GM/50 ML (PMX) 50 ML IVPB (08:30)
[2017-09-07] MEDS: NICOTINE (21 MG/24 HR) PATCH TRANSDERM (12:13)
[2017-09-07] MEDS: AMITRIPTYLINE 25 MG TAB PO (21:00)
[2017-09-07] MEDS: SOD CHLORIDE 0.9% IVPB (21:16)
[2017-09-07] MEDS: DAPTOMYCIN IVPB (21:16)
[2017-09-07] MEDS: BACLOFEN 10 MG TAB PO (21:32)
[2017-09-08] MEDS: HYDROmorphONE 2 MG TAB PO ×4 (00:31→16:54)
[2017-09-08] MEDS: AMITRIPTYLINE 25 MG TAB PO ×2 (00:31→20:01)
[2017-09-08] MEDS: ALPRAZOLAM 0.5 MG TAB PO ×2 (05:33→20:01)
[2017-09-08] MEDS: BACLOFEN 10 MG TAB PO ×2 (05:33→13:56)
[2017-09-08 06:15] LABS: CREATINE KINASE 78 IU/L (23-200)
[2017-09-08] MEDS: LEVETIRACETAM 250 MG TAB PO ×2 (08:20→20:01)
[2017-09-08] MEDS: GABAPENTIN 300 MG CAP PO ×3 (08:20→20:00)
[2017-09-08] MEDS: FLUCONAZOLE 100 MG TAB PO (08:20)
[2017-09-08] MEDS: DOCUSATE SODIUM 100 MG CAP PO ×2 (08:22→20:00)
[2017-09-08] MEDS: CEFTRIAXONE 1 GM/50 ML (PMX) 50 ML IVPB (09:26)
[2017-09-08] MEDS: NICOTINE (21 MG/24 HR) PATCH TRANSDERM (12:04)
[2017-09-08] MEDS: SOD CHLORIDE 0.9% IVPB (20:00)
[2017-09-08] MEDS: DAPTOMYCIN IVPB (20:00)
[2017-09-09] MEDS: HYDROmorphONE 2 MG TAB PO ×4 (04:29→18:27)
[2017-09-09] MEDS: ALPRAZOLAM 0.5 MG TAB PO ×2 (06:01→20:05)
[2017-09-09] MEDS: GABAPENTIN 300 MG CAP PO ×3 (08:11→20:04)
[2017-09-09] MEDS: FLUCONAZOLE 100 MG TAB PO (08:11)
[2017-09-09] MEDS: LEVETIRACETAM 250 MG TAB PO ×2 (08:11→20:05)
[2017-09-09] MEDS: DOCUSATE SODIUM 100 MG CAP PO ×2 (08:12→20:04)
[2017-09-09] MEDS: CEFTRIAXONE 1 GM/50 ML (PMX) 50 ML IVPB (08:50)
[2017-09-09] MEDS: PANTOPRAZOLE (EC) 40 MG TAB PO (09:56)
[2017-09-09] MEDS: FENTAnyl PATCH 75 MCG/HR TRANSDERM (10:03)
[2017-09-09] MEDS: NICOTINE (21 MG/24 HR) PATCH TRANSDERM (11:20)
[2017-09-09] MEDS: BACLOFEN 10 MG TAB PO ×2 (12:41→22:20)
[2017-09-09] MEDS: SOD CHLORIDE 0.9% IVPB (20:04)
[2017-09-09] MEDS: DAPTOMYCIN IVPB (20:04)
[2017-09-09] MEDS: AMITRIPTYLINE 25 MG TAB PO (20:05)
[2017-09-10] MEDS: HYDROmorphONE 2 MG TAB PO ×3 (02:57→21:37)
[2017-09-10] MEDS: ALPRAZOLAM 0.25 MG TAB PO ×3 (03:10→21:38)
[2017-09-10] MEDS: BACLOFEN 10 MG TAB PO ×3 (03:10→21:37)
[2017-09-10] MEDS: DOCUSATE SODIUM 100 MG CAP PO ×2 (09:57→21:00)
[2017-09-10] MEDS: GABAPENTIN 300 MG CAP PO ×3 (09:57→21:37)
[2017-09-10] MEDS: LEVETIRACETAM 250 MG TAB PO ×2 (09:57→21:37)
[2017-09-10] MEDS: CEFTRIAXONE 1 GM/50 ML (PMX) 50 ML IVPB (09:57)
[2017-09-10] MEDS: NICOTINE (21 MG/24 HR) PATCH TRANSDERM (12:57)
[2017-09-10] MEDS: AMITRIPTYLINE 25 MG TAB PO (21:37)
[2017-09-10] MEDS: DAPTOMYCIN IVPB (21:48)
[2017-09-10] MEDS: SOD CHLORIDE 0.9% IVPB (21:48)
[2017-09-11] MEDS: GABAPENTIN 300 MG CAP PO ×3 (10:03→20:23)
[2017-09-11] MEDS: BACLOFEN 10 MG TAB PO ×2 (10:03→20:23)
[2017-09-11] MEDS: DOCUSATE SODIUM 100 MG CAP PO ×2 (10:03→20:23)
[2017-09-11] MEDS: CEFTRIAXONE 1 GM/50 ML (PMX) 50 ML IVPB (10:03)
[2017-09-11] MEDS: HYDROmorphONE 2 MG TAB PO ×2 (10:04→20:24)
[2017-09-11] MEDS: LEVETIRACETAM 250 MG TAB PO ×2 (10:04→20:23)
[2017-09-11] MEDS: ALPRAZOLAM 0.25 MG TAB PO ×2 (10:04→20:23)
[2017-09-11] MEDS: NICOTINE (21 MG/24 HR) PATCH TRANSDERM (12:37)
[2017-09-11] MEDS: DAPTOMYCIN IVPB (20:23)
[2017-09-11] MEDS: SOD CHLORIDE 0.9% IVPB (20:23)
[2017-09-11] MEDS: AMITRIPTYLINE 25 MG TAB PO (20:23)
[2017-09-12] MEDS: BACLOFEN 10 MG TAB PO ×2 (06:43→20:32)
[2017-09-12] MEDS: HYDROmorphONE 2 MG TAB PO ×4 (06:43→20:32)
[2017-09-12] MEDS: ALPRAZOLAM 0.25 MG TAB PO ×2 (06:43→20:33)
[2017-09-12] MEDS: LEVETIRACETAM 250 MG TAB PO ×2 (09:07→20:32)
[2017-09-12] MEDS: CEFTRIAXONE 1 GM/50 ML (PMX) 50 ML IVPB (09:07)
[2017-09-12] MEDS: DOCUSATE SODIUM 100 MG CAP PO ×2 (09:07→20:32)
[2017-09-12] MEDS: GABAPENTIN 300 MG CAP PO ×3 (09:07→20:32)
[2017-09-12] MEDS: FENTAnyl PATCH 75 MCG/HR TRANSDERM (10:36)
[2017-09-12] MEDS: NICOTINE (21 MG/24 HR) PATCH TRANSDERM (12:26)
[2017-09-12] MEDS: SOD CHLORIDE 0.9% IVPB (20:32)
[2017-09-12] MEDS: DAPTOMYCIN IVPB (20:32)
[2017-09-12] MEDS: AMITRIPTYLINE 25 MG TAB PO (20:33)
[2017-09-12] MEDS: PANTOPRAZOLE (EC) 40 MG TAB PO (21:18)
[2017-09-13] MEDS: PANTOPRAZOLE (EC) 40 MG TAB PO (07:32)
[2017-09-13] MEDS: DOCUSATE SODIUM 100 MG CAP PO ×2 (08:52→21:53)
[2017-09-13] MEDS: GABAPENTIN 300 MG CAP PO ×3 (08:52→21:53)
[2017-09-13] MEDS: CEFTRIAXONE 1 GM/50 ML (PMX) 50 ML IVPB (08:53)
[2017-09-13] MEDS: ALPRAZOLAM 0.25 MG TAB PO ×2 (08:53→19:32)
[2017-09-13] MEDS: HYDROmorphONE 2 MG TAB PO ×3 (08:53→19:33)
[2017-09-13] MEDS: LEVETIRACETAM 250 MG TAB PO ×2 (08:53→21:53)
[2017-09-13] MEDS: BACLOFEN 10 MG TAB PO ×2 (08:53→19:33)
[2017-09-13] MEDS: NICOTINE (21 MG/24 HR) PATCH TRANSDERM (12:04)
[2017-09-13] MEDS: DAPTOMYCIN IVPB (21:53)
[2017-09-13] MEDS: SOD CHLORIDE 0.9% IVPB (21:53)
[2017-09-13] MEDS: AMITRIPTYLINE 25 MG TAB PO (21:53)
[2017-09-14] MEDS: HYDROmorphONE 2 MG TAB PO ×4 (05:38→20:21)
[2017-09-14] MEDS: BACLOFEN 10 MG TAB PO ×3 (05:38→16:17)
[2017-09-14 06:27] LABS: CREATININE 0.63 mg/dl (0.44-1.00)
[2017-09-14 06:27] LABS: BLOOD UREA NITROGEN 8 mg/dl (7-20)
[2017-09-14] MEDS: LEVETIRACETAM 250 MG TAB PO ×2 (08:27→20:20)
[2017-09-14] MEDS: DOCUSATE SODIUM 100 MG CAP PO ×2 (08:27→20:20)
[2017-09-14] MEDS: GABAPENTIN 300 MG CAP PO ×3 (08:27→20:20)
[2017-09-14] MEDS: ALPRAZOLAM 0.25 MG TAB PO ×2 (08:28→16:17)
[2017-09-14] MEDS: CEFTRIAXONE 1 GM/50 ML (PMX) 50 ML IVPB (08:29)
[2017-09-14] MEDS: NICOTINE (21 MG/24 HR) PATCH TRANSDERM (10:46)
[2017-09-14] MEDS: PANTOPRAZOLE (EC) 40 MG TAB PO (10:46)
[2017-09-14] MEDS: SOD CHLORIDE 0.9% IVPB (20:20)
[2017-09-14] MEDS: DAPTOMYCIN IVPB (20:20)
[2017-09-15] MEDS: AMITRIPTYLINE 25 MG TAB PO (00:52)
[2017-09-15] MEDS: ALPRAZOLAM 0.25 MG TAB PO ×2 (05:17→21:49)
[2017-09-15] MEDS: BACLOFEN 10 MG TAB PO ×3 (05:17→21:51)
[2017-09-15] MEDS: HYDROmorphONE 2 MG TAB PO ×4 (05:18→20:47)
[2017-09-15 07:06] LABS: CREATINE KINASE 71 IU/L (23-200)
[2017-09-15] MEDS: GABAPENTIN 300 MG CAP PO ×3 (09:29→20:46)
[2017-09-15] MEDS: CEFTRIAXONE 1 GM/50 ML (PMX) 50 ML IVPB (09:29)
[2017-09-15] MEDS: DOCUSATE SODIUM 100 MG CAP PO ×2 (09:29→20:47)
[2017-09-15] MEDS: LEVETIRACETAM 250 MG TAB PO ×2 (09:34→20:47)
[2017-09-15] MEDS: FENTAnyl PATCH 75 MCG/HR TRANSDERM (10:47)
[2017-09-15] MEDS: NICOTINE (21 MG/24 HR) PATCH TRANSDERM (12:14)
[2017-09-15] MEDS: DAPTOMYCIN IVPB (20:46)
[2017-09-15] MEDS: SOD CHLORIDE 0.9% IVPB (20:46)
[2017-09-16] MEDS: AMITRIPTYLINE 25 MG TAB PO ×3 (00:34→23:06)
[2017-09-16] MEDS: HYDROmorphONE 2 MG TAB PO ×5 (05:32→23:43)
[2017-09-16] MEDS: BACLOFEN 10 MG TAB PO ×3 (05:32→23:42)
[2017-09-16 06:12] LABS: ADD MAN DIFF? NO
[2017-09-16 06:20] LABS: BASOPHILS % 0.6 % (0.0-2.0); EOSINOPHILS # 0.1 10^3/ul (0.0-0.5); EOSINOPHILS % 2.5 % (0.0-7.0); HEMATOCRIT 26.7 % (37.0-47.0); HEMOGLOBIN 8.6 g/dl (12.0-16.0); LYMPHOCYTES # 1.6 10^3/ul (0.8-2.9); LYMPHOCYTES % 43.9 % (15.0-51.0); MEAN CORPUSCULAR HEMOGLOBIN 29.4 pg (29.0-33.0); MEAN CORPUSCULAR HGB CONC 32.2 g/dl (32.0-37.0); MEAN CORPUSCULAR VOLUME 91.1 fl (82.0-101.0); MEAN PLATELET VOLUME 9.9 fl (7.4-10.4); MONOCYTE # 0.3 10^3/ul (0.3-0.9); NEUTROPHIL # 1.6 10^3/ul (1.6-7.5); NEUTROPHILS % 43.7 % (39.0-77.0); PLATELET COUNT 109 10^3/UL (140-415); RED BLOOD COUNT 2.93 10^6/ul (4.20-5.40); RED CELL DISTRIBUTION WIDTH 16.2 % (11.5-14.5)
[2017-09-16 06:20] LABS: WHITE BLOOD COUNT 3.6 10^3/ul (4.8-10.8)
[2017-09-16 07:05] LABS: ANION GAP 8 (8-16); BLOOD UREA NITROGEN 7 mg/dl (7-20); CALCIUM 8.2 mg/dl (8.4-10.2); CARBON DIOXIDE 25 mmol/L (21-31); CHLORIDE 111 mmol/L (97-110); CREATININE 0.69 mg/dl (0.44-1.00); GLUCOSE 86 mg/dl (70-220); MAGNESIUM 1.8 mg/dl (1.7-2.5); POTASSIUM 3.6 mmol/L (3.5-5.1); SODIUM 140 mmol/L (135-144)
[2017-09-16] MEDS: LEVETIRACETAM 250 MG TAB PO ×2 (08:53→20:21)
[2017-09-16] MEDS: GABAPENTIN 300 MG CAP PO ×3 (08:53→20:21)
[2017-09-16] MEDS: DOCUSATE SODIUM 100 MG CAP PO ×2 (08:53→20:21)
[2017-09-16] MEDS: ALPRAZOLAM 0.25 MG TAB PO (08:54)
[2017-09-16] MEDS: NICOTINE (21 MG/24 HR) PATCH TRANSDERM (10:46)
[2017-09-16] MEDS: CEFTRIAXONE 1 GM/50 ML (PMX) 50 ML IVPB (10:50)
[2017-09-16] MEDS: PANTOPRAZOLE (EC) 40 MG TAB PO (12:34)
[2017-09-16] MEDS: DAPTOMYCIN IVPB (20:20)
[2017-09-16] MEDS: SOD CHLORIDE 0.9% IVPB (20:20)
[2017-09-17] MEDS: BACLOFEN 10 MG TAB PO ×3 (09:05→18:50)
[2017-09-17] MEDS: HYDROmorphONE 2 MG TAB PO ×3 (09:05→18:50)
[2017-09-17] MEDS: DOCUSATE SODIUM 100 MG CAP PO ×2 (09:34→20:16)
[2017-09-17] MEDS: LEVETIRACETAM 250 MG TAB PO ×2 (09:34→20:16)
[2017-09-17] MEDS: GABAPENTIN 300 MG CAP PO ×3 (09:34→20:16)
[2017-09-17] MEDS: CEFTRIAXONE 1 GM/50 ML (PMX) 50 ML IVPB (09:38)
[2017-09-17] MEDS: ENOXAPARIN 40 MG/0.4 ML SYG SC (09:45)
[2017-09-17] MEDS: NICOTINE (21 MG/24 HR) PATCH TRANSDERM (12:18)
[2017-09-17] MEDS: AMITRIPTYLINE 25 MG TAB PO (20:16)
[2017-09-17] MEDS: SOD CHLORIDE 0.9% IVPB (20:19)
[2017-09-17] MEDS: DAPTOMYCIN IVPB (20:19)
[2017-09-18] MEDS: HYDROmorphONE 2 MG TAB PO ×4 (00:26→15:46)
[2017-09-18] MEDS: BACLOFEN 10 MG TAB PO ×3 (06:18→15:46)
[2017-09-18] MEDS: LEVETIRACETAM 250 MG TAB PO (09:30)
[2017-09-18] MEDS: GABAPENTIN 300 MG CAP PO ×2 (09:30→12:51)
[2017-09-18] MEDS: CEFTRIAXONE 1 GM/50 ML (PMX) 50 ML IVPB (09:31)
[2017-09-18] MEDS: DOCUSATE SODIUM 100 MG CAP PO (09:31)
[2017-09-18] MEDS: ENOXAPARIN 40 MG/0.4 ML SYG SC (09:43)
[2017-09-18] MEDS: ALPRAZOLAM 0.25 MG TAB PO (10:28)
[2017-09-18] MEDS: FENTAnyl PATCH 75 MCG/HR TRANSDERM (12:53)
[2017-09-18] MEDS: NICOTINE (21 MG/24 HR) PATCH TRANSDERM (12:56)
[2017-09-18] MEDS: PANTOPRAZOLE (EC) 40 MG TAB PO (15:03)
[2017-09-18] MEDS: SOD CHLORIDE 0.9% IVPB (16:29)
[2017-09-18] MEDS: DAPTOMYCIN IVPB (16:29)
== END 2017-09-18 18:35 | disposition home health service (06) | DRG 478 ==
LOC: MS1 08-21 01:01 → MS2 09-09 23:10 → E/R 16:21
PROC: 0QBH3ZX Excision of Left Tibia, Percutaneous Approach, Diagnostic (ICD-10-PCS; principal; 2017-08-24)
PROC: 0Q9 Lower Bones, Drainage (ICD-10-PCS; 2017-08-24)
PROC: 02HV33Z Insertion of Infusion Device into Superior Vena Cava, Percutaneous Approach (ICD-10-PCS; 2017-08-28)
PROC: B54MZZA Ultrasonography of Right Upper Extremity Veins, Guidance (ICD-10-PCS; 2017-08-28)
DX: M86.262 Subacute osteomyelitis, left tibia and fibula (principal); G82.20 Paraplegia, unspecified; L02.416 Cutaneous abscess of left lower limb; F33.3 Major depressive disorder, recurrent, severe with psychotic symptoms; Z68.41 Body mass index [BMI] 40.0-44.9, adult; L03.116 Cellulitis of left lower limb; N39.0 Urinary tract infection, site not specified; B37.49 Other urogenital candidiasis; S82.142A Displaced bicondylar fracture of left tibia, initial encounter for closed fracture; E88.09 Other disorders of plasma-protein metabolism, not elsewhere classified; I87.2 Venous insufficiency (chronic) (peripheral); I89.0 Lymphedema, not elsewhere classified; G89.4 Chronic pain syndrome; B96.20 Unspecified Escherichia coli [E. coli] as the cause of diseases classified elsewhere; F17.210 Nicotine dependence, cigarettes, uncomplicated; R74.0 Nonspecific elevation of levels of transaminase and lactic acid dehydrogenase [LDH]; D64.9 Anemia, unspecified; I87.8 Other specified disorders of veins; I10 Essential (primary) hypertension; Z99.3 Dependence on wheelchair; M17.12 Unilateral primary osteoarthritis, left knee; E66.01 Morbid (severe) obesity due to excess calories; F14.10 Cocaine abuse, uncomplicated; G40.909 Epilepsy, unspecified, not intractable, without status epilepticus; F43.23 Adjustment disorder with mixed anxiety and depressed mood; H91.93 Unspecified hearing loss, bilateral; K62.3 Rectal prolapse; B18.2 Chronic viral hepatitis C; W05.0XXA Fall from non-moving wheelchair, initial encounter
CPT/HCPCS: 36415; 36569; 71010; 73562; 73721; 74000; 76937; 77012; 80048; 80053; 80069; 80202; 80307; 81001; 82550; 82565; 83690; 83735; 84100; 84520; 85025; 85610; 85651; 85730; 86140; 86803; 87040; 87070; 87075; 87086; 87340; 96374; 96375; 97003; 97110; 97163; 97166; 97530; 97535; 97542; 99285-25

== ENCOUNTER 2017-11-04 16:43 | Emergency (ER) | payer SELFPAY, OTHER | END 2017-11-04 21:56 | disposition left against medical advice (07) | LOC: E/R 16:43 | DX: Z53.21 Procedure and treatment not carried out due to patient leaving prior to being seen by health care provider (principal) ==

== ENCOUNTER 2017-11-05 11:57 | Emergency (ER) | payer OTHER | END 2017-11-05 16:27 | disposition home or self-care (01) | LOC: E/R 11:57 | DX: M25.561 Pain in right knee (principal); M54.9 Dorsalgia, unspecified | CPT/HCPCS: 71045; 72131; 73562; 93971; 99285-25 ==

== ENCOUNTER 2018-01-06 04:32 | Emergency (ER) | payer OTHER ==
[2018-01-06] MEDS: DIAZEPAM 5 MG/ML SYG IV (07:27)
[2018-01-06] MEDS: ONDANSETRON 4 MG INJ IV (07:27)
[2018-01-06] MEDS: HYDROmorphONE 1 MG/5 ML IV SYRINGE IV (07:27)
== END 2018-01-06 09:07 | disposition home or self-care (01) ==
LOC: E/R 04:32
DX: G89.4 Chronic pain syndrome (principal); R40.2142 Coma scale, eyes open, spontaneous, at arrival to emergency department; R40.2252 Coma scale, best verbal response, oriented, at arrival to emergency department; R40.2362 Coma scale, best motor response, obeys commands, at arrival to emergency department
CPT/HCPCS: 96374; 96375; 99284-25

== ENCOUNTER 2018-03-15 13:27 | Inpatient (IN) | payer OTHER ==
[2018-03-15 14:59] LABS: ADD MAN DIFF? NO
[2018-03-15 15:04] LABS: WHITE BLOOD COUNT 4.1 10^3/ul (4.8-10.8)
[2018-03-15 15:05] LABS: BASOPHILS % 0.7 % (0.0-2.0); EOSINOPHILS # 0.1 10^3/ul (0.0-0.5); EOSINOPHILS % 2.2 % (0.0-7.0); HEMATOCRIT 31.9 % (37.0-47.0); HEMOGLOBIN 9.8 g/dl (12.0-16.0); LYMPHOCYTES # 1.2 10^3/ul (0.8-2.9); LYMPHOCYTES % 29.9 % (15.0-51.0); MEAN CORPUSCULAR HEMOGLOBIN 26.4 pg (29.0-33.0); MEAN CORPUSCULAR HGB CONC 30.7 g/dl (32.0-37.0); MEAN PLATELET VOLUME 10.8 fl (7.4-10.4); MONOCYTE # 0.4 10^3/ul (0.3-0.9); MONOCYTES % 9.5 % (0.0-11.0); NEUTROPHIL # 2.4 10^3/ul (1.6-7.5); NEUTROPHILS % 57.5 % (39.0-77.0); PLATELET COUNT 123 10^3/UL (140-415); RED BLOOD COUNT 3.71 10^6/ul (4.20-5.40); RED CELL DISTRIBUTION WIDTH 16.9 % (11.5-14.5)
[2018-03-15 15:35] LABS: ALANINE AMINOTRANSFERASE 41 IU/L (13-69); ALBUMIN 3.5 g/dl (3.3-4.9); ALBUMIN/GLOBULIN RATIO 0.92; ALKALINE PHOSPHATASE 145 IU/L (42-121); ANION GAP 13 (8-16); ASPARTATE AMINO TRANSFERASE 44 IU/L (15-46); BILIRUBIN,INDIRECT 0.3 mg/dl (0-1.1); BILIRUBIN,TOTAL 0.3 mg/dl (0.2-1.3); BLOOD UREA NITROGEN 12 mg/dl (7-20); CALCIUM 8.5 mg/dl (8.4-10.2); CARBON DIOXIDE 21 mmol/L (21-31); CHLORIDE 113 mmol/L (97-110); GLUCOSE 100 mg/dl (70-220); POTASSIUM 3.8 mmol/L (3.5-5.1); SODIUM 143 mmol/L (135-144); TOTAL PROTEIN 7.3 g/dl (6.1-8.1)
[2018-03-15 15:36] LABS: C-REACTIVE PROTEIN < 0.5 mg/dl (0.0-0.9)
[2018-03-15] MEDS: PIPER-TAZO 3.375 GM IV (PMX) 100 ML IVPB ×2 (15:38→22:27)
[2018-03-15] MEDS: HYDROmorphONE 1 MG/ML SYG IV (15:38)
[2018-03-15 16:22] LABS: ERYTHROCYTE SEDIMENTATION RATE 20 mm/Hr (0-30)
[2018-03-15] MEDS: VANCOMYCIN 1 GM (PMX) 250 ML IVPB (16:55)
[2018-03-15] MEDS ORDERED: ONDANSETRON 4 MG INJ IV ×2 (17:00→18:00)
[2018-03-15] MEDS ORDERED: ACETAMINOPHEN 325 MG TAB PO ×2 (17:00→18:00)
[2018-03-15] MEDS ORDERED: VANCOMYCIN IV PER PHARMACY XX (18:00)
[2018-03-15] MEDS ORDERED: NACL 0.9% 3 ML SYG IV (18:00)
[2018-03-15 18:40] LABS: HEMOGLOBIN A1C 5.4 % (0-5.9)
[2018-03-15 18:55] LABS: FREE T4 (FREE THYROXINE) 0.97 ng/dl (0.64-1.79)
[2018-03-15 19:14] LABS: B-TYPE NATRIURETIC PEPTIDE 58 PG/ML (0-125)
[2018-03-15] MEDS: LEVETIRACETAM 500 MG TAB PO (21:33)
[2018-03-15] MEDS: GABAPENTIN 300 MG CAP PO (21:33)
[2018-03-15] MEDS: METOPROLOL 25 MG TAB PO (21:33)
[2018-03-15] MEDS: BACLOFEN 10 MG TAB PO (21:34)
[2018-03-15] MEDS: PENTOXIFYLLINE (SR) 400 MG TAB PO (22:27)
[2018-03-15] MEDS: AMITRIPTYLINE 25 MG TAB PO (22:27)
[2018-03-15] MEDS: HYDROCODONE/APAP (5/325) TAB PO (22:40)
[2018-03-15] MEDS: ALPRAZOLAM 0.25 MG TAB PO (23:09)
[2018-03-16] MEDS: ALPRAZOLAM 0.25 MG TAB PO ×2 (05:51→23:35)
[2018-03-16] MEDS: PANTOPRAZOLE (EC) 40 MG TAB PO (05:51)
[2018-03-16] MEDS: HYDROCODONE/APAP (5/325) TAB PO (05:51)
[2018-03-16] MEDS: PIPER-TAZO 3.375 GM IV (PMX) 100 ML IVPB ×5 (05:53→23:36)
[2018-03-16] MEDS: BACLOFEN 10 MG TAB PO ×3 (05:53→21:05)
[2018-03-16 07:14] LABS: ADD MAN DIFF? NO; BASOPHILS % 0.6 % (0.0-2.0); EOSINOPHILS # 0.1 10^3/ul (0.0-0.5); EOSINOPHILS % 2.7 % (0.0-7.0); HEMATOCRIT 30.2 % (37.0-47.0); HEMOGLOBIN 9.2 g/dl (12.0-16.0); LYMPHOCYTES # 1.1 10^3/ul (0.8-2.9); LYMPHOCYTES % 32.5 % (15.0-51.0); MEAN CORPUSCULAR HEMOGLOBIN 26.3 pg (29.0-33.0); MEAN CORPUSCULAR HGB CONC 30.5 g/dl (32.0-37.0); MEAN CORPUSCULAR VOLUME 86.3 fl (82.0-101.0); MEAN PLATELET VOLUME 10.9 fl (7.4-10.4); MONOCYTE # 0.3 10^3/ul (0.3-0.9); MONOCYTES % 9.4 % (0.0-11.0); NEUTROPHIL # 1.8 10^3/ul (1.6-7.5); NEUTROPHILS % 54.5 % (39.0-77.0); PLATELET COUNT 114 10^3/UL (140-415); RED CELL DISTRIBUTION WIDTH 17.1 % (11.5-14.5)
[2018-03-16 07:14] LABS: WHITE BLOOD COUNT 3.3 10^3/ul (4.8-10.8)
[2018-03-16 07:39] LABS: ALANINE AMINOTRANSFERASE 36 IU/L (13-69); ALBUMIN/GLOBULIN RATIO 0.81; ALKALINE PHOSPHATASE 126 IU/L (42-121); ANION GAP 13 (8-16); ASPARTATE AMINO TRANSFERASE 38 IU/L (15-46); BILIRUBIN,INDIRECT 0.2 mg/dl (0-1.1); BILIRUBIN,TOTAL 0.2 mg/dl (0.2-1.3); BLOOD UREA NITROGEN 12 mg/dl (7-20); CALCIUM 8.3 mg/dl (8.4-10.2); CARBON DIOXIDE 20 mmol/L (21-31); CHLORIDE 115 mmol/L (97-110); CREATININE 0.65 mg/dl (0.44-1.00); GLUCOSE 121 mg/dl (70-220); POTASSIUM 3.7 mmol/L (3.5-5.1); SODIUM 144 mmol/L (135-144); TOTAL PROTEIN 6.7 g/dl (6.1-8.1)
[2018-03-16 07:40] LABS: PHOSPHORUS 3.9 mg/dl (2.5-4.9)
[2018-03-16 07:40] LABS: MAGNESIUM 1.8 mg/dl (1.7-2.5)
[2018-03-16] MEDS: NICOTINE (14 MG/24 HR) PATCH TRANSDERM (09:20)
[2018-03-16] MEDS: LEVETIRACETAM 500 MG TAB PO ×2 (09:20→21:04)
[2018-03-16] MEDS: DOCUSATE SODIUM 100 MG CAP PO ×2 (09:21→21:04)
[2018-03-16] MEDS: PENTOXIFYLLINE (SR) 400 MG TAB PO ×3 (09:21→21:05)
[2018-03-16] MEDS: GABAPENTIN 300 MG CAP PO ×2 (09:21→21:04)
[2018-03-16] MEDS: METOPROLOL 25 MG TAB PO ×2 (09:22→21:09)
[2018-03-16] MEDS: HYDROmorphONE 2 MG TAB PO ×3 (09:33→21:05)
[2018-03-16] MEDS: FENTAnyl PATCH 75 MCG/HR TRANSDERM (13:14)
[2018-03-16] MEDS: VANCOMYCIN 1.5 GM in SOD CHLORIDE 0.9% 250 ML IVPB (13:20)
[2018-03-16 17:46] LABS: AMPHETAMINE/METHAMPHETAMINE Negative (NEGATIVE); BARBITURATES Negative (NEGATIVE); BENZODIAZEPINES Positive (NEGATIVE); CANNABINOIDS Positive (NEGATIVE); COCAINE Negative (NEGATIVE)
[2018-03-16 17:58] LABS: OPIATES Positive (NEGATIVE)
[2018-03-16] MEDS: AMITRIPTYLINE 25 MG TAB PO (21:05)
[2018-03-17] MEDS: PIPER-TAZO 3.375 GM IV (PMX) 100 ML IVPB ×3 (05:27→18:15)
[2018-03-17] MEDS: PANTOPRAZOLE (EC) 40 MG TAB PO (05:28)
[2018-03-17] MEDS: BACLOFEN 10 MG TAB PO ×3 (05:28→21:52)
[2018-03-17] MEDS: ALPRAZOLAM 0.25 MG TAB PO ×3 (05:30→14:27)
[2018-03-17] MEDS: HYDROmorphONE 2 MG TAB PO ×4 (05:31→21:53)
[2018-03-17 05:55] LABS: ADD MAN DIFF? NO
[2018-03-17 06:04] LABS: BASOPHILS % 0.7 % (0.0-2.0); EOSINOPHILS # 0.1 10^3/ul (0.0-0.5); EOSINOPHILS % 2.2 % (0.0-7.0); LYMPHOCYTES # 1.1 10^3/ul (0.8-2.9); LYMPHOCYTES % 38.7 % (15.0-51.0); MEAN CORPUSCULAR HEMOGLOBIN 25.8 pg (29.0-33.0); MEAN PLATELET VOLUME 10.7 fl (7.4-10.4); MONOCYTE # 0.3 10^3/ul (0.3-0.9); MONOCYTES % 9.7 % (0.0-11.0); NEUTROPHIL # 1.4 10^3/ul (1.6-7.5); NEUTROPHILS % 48.3 % (39.0-77.0); PLATELET COUNT 105 10^3/UL (140-415); RED BLOOD COUNT 3.49 10^6/ul (4.20-5.40)
[2018-03-17 06:04] LABS: WHITE BLOOD COUNT 2.8 10^3/ul (4.8-10.8)
[2018-03-17 06:25] LABS: MAGNESIUM 1.8 mg/dl (1.7-2.5)
[2018-03-17 06:25] LABS: PHOSPHORUS 3.4 mg/dl (2.5-4.9)
[2018-03-17 06:59] LABS: ANION GAP 6 (8-16); BLOOD UREA NITROGEN 10 mg/dl (7-20); CALCIUM 8.2 mg/dl (8.4-10.2); CARBON DIOXIDE 24 mmol/L (21-31); CHLORIDE 117 mmol/L (97-110); CREATININE 0.64 mg/dl (0.44-1.00); GLUCOSE 105 mg/dl (70-220); SODIUM 143 mmol/L (135-144)
[2018-03-17] MEDS: CHOLECALCIFEROL 1,000 UNIT TAB PO (09:39)
[2018-03-17] MEDS: GABAPENTIN 300 MG CAP PO ×2 (09:39→21:52)
[2018-03-17] MEDS: DOCUSATE SODIUM 100 MG CAP PO ×2 (09:39→21:52)
[2018-03-17] MEDS: METOPROLOL 25 MG TAB PO ×2 (09:40→21:55)
[2018-03-17] MEDS: PENTOXIFYLLINE (SR) 400 MG TAB PO ×3 (09:41→21:53)
[2018-03-17] MEDS: LEVETIRACETAM 500 MG TAB PO ×2 (09:41→21:53)
[2018-03-17] MEDS: NICOTINE (14 MG/24 HR) PATCH TRANSDERM (09:45)
[2018-03-17] MEDS: ENOXAPARIN 40 MG/0.4 ML SYG SC (09:48)
[2018-03-17 10:24] LABS: CHOLESTEROL 99 mg/dl (100-200)
[2018-03-17 10:24] LABS: CHOL/HDL RATIO 2.3 RATIO; HDL CHOLESTEROL 42 mg/dl (37-92); LDL CHOLESTEROL,CALCULATED 36 mg/dl; TRIGLYCERIDES 107 mg/dl (0-149)
[2018-03-17] MEDS: VANCOMYCIN 1.5 GM in SOD CHLORIDE 0.9% 250 ML IVPB (14:26)
[2018-03-17] MEDS ORDERED: morphine 2 MG INJ IV (18:30)
[2018-03-17] MEDS ORDERED: ACETAMINOPHEN 325 MG TAB PO ×2 (18:30→19:00)
[2018-03-17] MEDS ORDERED: HYDROCODONE/APAP (5/325) TAB PO (18:30)
[2018-03-17] MEDS: AMITRIPTYLINE 25 MG TAB PO (21:52)
[2018-03-18] MEDS: PIPER-TAZO 3.375 GM IV (PMX) 100 ML IVPB ×3 (00:11→11:40)
[2018-03-18] MEDS: HYDROCODONE/APAP (5/325) TAB PO ×3 (02:15→20:28)
[2018-03-18] MEDS: PANTOPRAZOLE (EC) 40 MG TAB PO (05:53)
[2018-03-18] MEDS: BACLOFEN 10 MG TAB PO ×3 (05:53→22:50)
[2018-03-18] MEDS: METOPROLOL 25 MG TAB PO ×2 (08:09→20:29)
[2018-03-18] MEDS: ENOXAPARIN 40 MG/0.4 ML SYG SC (08:17)
[2018-03-18] MEDS: HYDROmorphONE 2 MG TAB PO ×3 (08:18→22:57)
[2018-03-18] MEDS: GABAPENTIN 300 MG CAP PO ×2 (08:18→20:28)
[2018-03-18] MEDS: DOCUSATE SODIUM 100 MG CAP PO ×2 (08:18→20:28)
[2018-03-18] MEDS: LEVETIRACETAM 500 MG TAB PO ×2 (08:23→20:28)
[2018-03-18] MEDS: PENTOXIFYLLINE (SR) 400 MG TAB PO ×3 (08:23→20:28)
[2018-03-18] MEDS: CHOLECALCIFEROL 1,000 UNIT TAB PO (08:23)
[2018-03-18] MEDS: NICOTINE (14 MG/24 HR) PATCH TRANSDERM (08:26)
[2018-03-18 10:36] LABS: ADD MAN DIFF? NO
[2018-03-18 10:45] LABS: ABNORMAL IP MESSAGE 1; BASOPHILS % 0.7 % (0.0-2.0); EOSINOPHILS # 0.1 10^3/ul (0.0-0.5); EOSINOPHILS % 2.7 % (0.0-7.0); HEMATOCRIT 29.2 % (37.0-47.0); LYMPHOCYTES % 33.6 % (15.0-51.0); MEAN CORPUSCULAR HEMOGLOBIN 26.9 pg (29.0-33.0); MEAN CORPUSCULAR HGB CONC 30.8 g/dl (32.0-37.0); MEAN CORPUSCULAR VOLUME 87.2 fl (82.0-101.0); MEAN PLATELET VOLUME 10.8 fl (7.4-10.4); MONOCYTE # 0.3 10^3/ul (0.3-0.9); MONOCYTES % 11.6 % (0.0-11.0); NEUTROPHIL # 1.5 10^3/ul (1.6-7.5); NEUTROPHILS % 51.1 % (39.0-77.0); PLATELET COUNT 98 10^3/UL (140-415); RED BLOOD COUNT 3.35 10^6/ul (4.20-5.40); RED CELL DISTRIBUTION WIDTH 16.9 % (11.5-14.5)
[2018-03-18 10:45] LABS: WHITE BLOOD COUNT 2.9 10^3/ul (4.8-10.8)
[2018-03-18 10:46] LABS: POSITIVE DIFF @See below
[2018-03-18 10:57] LABS: ANION GAP 9 (8-16); BLOOD UREA NITROGEN 10 mg/dl (7-20); CALCIUM 8.4 mg/dl (8.4-10.2); CARBON DIOXIDE 22 mmol/L (21-31); CHLORIDE 114 mmol/L (97-110); CREATININE 0.58 mg/dl (0.44-1.00); GLUCOSE 115 mg/dl (70-220); POTASSIUM 4.3 mmol/L (3.5-5.1); SODIUM 141 mmol/L (135-144)
[2018-03-18 10:58] LABS: PHOSPHORUS 3.5 mg/dl (2.5-4.9)
[2018-03-18 10:58] LABS: MAGNESIUM 1.7 mg/dl (1.7-2.5)
[2018-03-18] MEDS: VANCOMYCIN 1.5 GM in SOD CHLORIDE 0.9% 250 ML IVPB (12:30)
[2018-03-18] MEDS: CEFEPIME 1GM/50 ML (PMX) 50 ML IVPB ×2 (15:00→22:50)
[2018-03-18] MEDS: AMITRIPTYLINE 25 MG TAB PO (20:28)
[2018-03-19] MEDS: HYDROCODONE/APAP (5/325) TAB PO ×3 (06:15→20:22)
[2018-03-19] MEDS: PANTOPRAZOLE (EC) 40 MG TAB PO (06:15)
[2018-03-19] MEDS: BACLOFEN 10 MG TAB PO ×3 (06:15→22:15)
[2018-03-19] MEDS: LEVETIRACETAM 500 MG TAB PO ×2 (08:53→20:17)
[2018-03-19] MEDS: DOCUSATE SODIUM 100 MG CAP PO ×2 (08:53→20:17)
[2018-03-19] MEDS: GABAPENTIN 300 MG CAP PO ×2 (08:53→20:17)
[2018-03-19] MEDS: PENTOXIFYLLINE (SR) 400 MG TAB PO ×3 (08:53→20:18)
[2018-03-19] MEDS: CHOLECALCIFEROL 1,000 UNIT TAB PO (08:53)
[2018-03-19] MEDS: CEFEPIME 1GM/50 ML (PMX) 50 ML IVPB ×2 (08:54→20:17)
[2018-03-19] MEDS: METOPROLOL 25 MG TAB PO ×2 (08:54→20:18)
[2018-03-19] MEDS: ENOXAPARIN 40 MG/0.4 ML SYG SC ×2 (08:56→09:00)
[2018-03-19] MEDS: HYDROmorphONE 2 MG TAB PO ×2 (08:57→18:06)
[2018-03-19] MEDS: NICOTINE (14 MG/24 HR) PATCH TRANSDERM (08:58)
[2018-03-19] MEDS ORDERED: PENDING SANTYL ORDER FOR WOUND CARE XX (11:30)
[2018-03-19] MEDS: FENTAnyl PATCH 75 MCG/HR TRANSDERM (11:34)
[2018-03-19 11:52] LABS: VANCOMYCIN,TROUGH 8.9 ug/ml (10.0-20.0)
[2018-03-19] MEDS: VANCOMYCIN 1.5 GM in SOD CHLORIDE 0.9% 250 ML IVPB (12:35)
[2018-03-19] MEDS: CIPROFLOXACIN 500 MG TAB PO ×2 (15:43→20:18)
[2018-03-19] MEDS: AMITRIPTYLINE 25 MG TAB PO (20:18)
[2018-03-19] MEDS: ALPRAZOLAM 0.25 MG TAB PO (20:25)
[2018-03-20] MEDS: VANCOMYCIN 1 GM 250 ML IVPB ×2 (01:11→13:56)
[2018-03-20] MEDS: HYDROmorphONE 2 MG TAB PO ×5 (01:25→22:10)
[2018-03-20] MEDS: HYDROCODONE/APAP (5/325) TAB PO ×2 (03:50→09:46)
[2018-03-20] MEDS: ALPRAZOLAM 0.25 MG TAB PO ×2 (03:51→23:02)
[2018-03-20 05:31] LABS: URINE DRUG SCREEN RESULT DRUG(S) DETECTED:
[2018-03-20 05:38] LABS: ADD MAN DIFF? NO
[2018-03-20 05:43] LABS: WHITE BLOOD COUNT 2.8 10^3/ul (4.8-10.8)
[2018-03-20 05:43] LABS: ABNORMAL IP MESSAGE 1; BASOPHILS % 0.7 % (0.0-2.0); EOSINOPHILS # 0.1 10^3/ul (0.0-0.5); EOSINOPHILS % 2.5 % (0.0-7.0); HEMATOCRIT 29.5 % (37.0-47.0); HEMOGLOBIN 9.3 g/dl (12.0-16.0); LYMPHOCYTES # 1.1 10^3/ul (0.8-2.9); LYMPHOCYTES % 38.9 % (15.0-51.0); MEAN CORPUSCULAR HEMOGLOBIN 26.6 pg (29.0-33.0); MEAN CORPUSCULAR HGB CONC 31.5 g/dl (32.0-37.0); MEAN CORPUSCULAR VOLUME 84.5 fl (82.0-101.0); MONOCYTE # 0.4 10^3/ul (0.3-0.9); MONOCYTES % 12.5 % (0.0-11.0); NEUTROPHIL # 1.3 10^3/ul (1.6-7.5); NEUTROPHILS % 45.4 % (39.0-77.0); PLATELET COUNT 92 10^3/UL (140-415); RED BLOOD COUNT 3.49 10^6/ul (4.20-5.40); RED CELL DISTRIBUTION WIDTH 16.6 % (11.5-14.5)
[2018-03-20 05:57] LABS: POSITIVE DIFF @See below
[2018-03-20 06:08] LABS: ANION GAP 9 (8-16); BLOOD UREA NITROGEN 7 mg/dl (7-20); CALCIUM 8.4 mg/dl (8.4-10.2); CARBON DIOXIDE 24 mmol/L (21-31); CHLORIDE 114 mmol/L (97-110); CREATININE 0.56 mg/dl (0.44-1.00); GLUCOSE 84 mg/dl (70-220); MAGNESIUM 1.7 mg/dl (1.7-2.5); SODIUM 143 mmol/L (135-144)
[2018-03-20 06:24] LABS: IRON 31 ug/dl (35-150)
[2018-03-20 06:34] LABS: % IRON SATURATION 9 % SAT (22-52); TOTAL IRON BINDING CAPACITY 354 ug/dl (241-421)
[2018-03-20] MEDS: CIPROFLOXACIN 500 MG TAB PO ×2 (06:51→17:56)
[2018-03-20] MEDS: BACLOFEN 10 MG TAB PO ×3 (06:51→22:09)
[2018-03-20] MEDS: PANTOPRAZOLE (EC) 40 MG TAB PO (06:53)
[2018-03-20] MEDS: ENOXAPARIN 40 MG/0.4 ML SYG SC (09:00)
[2018-03-20] MEDS: PENTOXIFYLLINE (SR) 400 MG TAB PO ×3 (09:32→22:09)
[2018-03-20] MEDS: DOCUSATE SODIUM 100 MG CAP PO ×2 (09:32→22:09)
[2018-03-20] MEDS: LEVETIRACETAM 500 MG TAB PO ×2 (09:32→22:09)
[2018-03-20] MEDS: GABAPENTIN 300 MG CAP PO ×2 (09:32→22:09)
[2018-03-20] MEDS: METOPROLOL 25 MG TAB PO ×2 (09:34→22:10)
[2018-03-20] MEDS: CEFEPIME 1GM/50 ML (PMX) 50 ML IVPB (09:34)
[2018-03-20] MEDS: CHOLECALCIFEROL 1,000 UNIT TAB PO (09:35)
[2018-03-20] MEDS: NICOTINE (14 MG/24 HR) PATCH TRANSDERM (09:35)
[2018-03-20] MEDS ORDERED: VANCOMYCIN IV PER PHARMACY XX (15:30)
[2018-03-20] MEDS: AMITRIPTYLINE 25 MG TAB PO (22:09)
[2018-03-21] MEDS: VANCOMYCIN 1 GM 250 ML IVPB ×2 (01:11→13:00)
[2018-03-21] MEDS: HYDROmorphONE 2 MG TAB PO ×4 (03:27→20:28)
[2018-03-21] MEDS: BACLOFEN 10 MG TAB PO ×3 (05:54→22:02)
[2018-03-21] MEDS: CIPROFLOXACIN 500 MG TAB PO ×2 (05:54→17:31)
[2018-03-21] MEDS: HYDROCODONE/APAP (5/325) TAB PO ×3 (05:54→22:02)
[2018-03-21] MEDS: PANTOPRAZOLE (EC) 40 MG TAB PO (05:54)
[2018-03-21] MEDS: ALPRAZOLAM 0.25 MG TAB PO ×2 (05:55→22:02)
[2018-03-21 06:49] LABS: ADD MAN DIFF? NO
[2018-03-21 06:54] LABS: ABNORMAL IP MESSAGE 1; BASOPHILS % 0.7 % (0.0-2.0); EOSINOPHILS # 0.1 10^3/ul (0.0-0.5); HEMATOCRIT 29.2 % (37.0-47.0); HEMOGLOBIN 9.1 g/dl (12.0-16.0); LYMPHOCYTES # 1.2 10^3/ul (0.8-2.9); LYMPHOCYTES % 38.7 % (15.0-51.0); MEAN CORPUSCULAR HEMOGLOBIN 26.5 pg (29.0-33.0); MEAN CORPUSCULAR HGB CONC 31.2 g/dl (32.0-37.0); MEAN CORPUSCULAR VOLUME 85.1 fl (82.0-101.0); MEAN PLATELET VOLUME 10.3 fl (7.4-10.4); MONOCYTE # 0.3 10^3/ul (0.3-0.9); MONOCYTES % 9.4 % (0.0-11.0); NEUTROPHIL # 1.5 10^3/ul (1.6-7.5); NEUTROPHILS % 48.9 % (39.0-77.0); PLATELET COUNT 99 10^3/UL (140-415); RED BLOOD COUNT 3.43 10^6/ul (4.20-5.40); RED CELL DISTRIBUTION WIDTH 16.6 % (11.5-14.5)
[2018-03-21 07:04] LABS: POSITIVE DIFF @See below
[2018-03-21 07:16] LABS: ANION GAP 11 (8-16); BLOOD UREA NITROGEN 7 mg/dl (7-20); CALCIUM 8.3 mg/dl (8.4-10.2); CARBON DIOXIDE 22 mmol/L (21-31); CHLORIDE 114 mmol/L (97-110); CREATININE 0.54 mg/dl (0.44-1.00); GLUCOSE 117 mg/dl (70-220); POTASSIUM 3.8 mmol/L (3.5-5.1); SODIUM 143 mmol/L (135-144)
[2018-03-21] MEDS: ENOXAPARIN 40 MG/0.4 ML SYG SC (09:00)
[2018-03-21] MEDS: DOCUSATE SODIUM 100 MG CAP PO ×2 (09:02→20:23)
[2018-03-21] MEDS: GABAPENTIN 300 MG CAP PO ×2 (09:02→20:23)
[2018-03-21] MEDS: LEVETIRACETAM 500 MG TAB PO ×2 (09:02→20:23)
[2018-03-21] MEDS: CHOLECALCIFEROL 1,000 UNIT TAB PO (09:02)
[2018-03-21] MEDS: PENTOXIFYLLINE (SR) 400 MG TAB PO ×3 (09:02→20:23)
[2018-03-21] MEDS: METOPROLOL 25 MG TAB PO ×2 (09:03→20:24)
[2018-03-21] MEDS: NICOTINE (14 MG/24 HR) PATCH TRANSDERM (09:04)
[2018-03-21] MEDS: CYCLOBENZAPRINE 10 MG TAB PO (12:13)
[2018-03-21 13:03] LABS: VANCOMYCIN,TROUGH 13.2 ug/ml (10.0-20.0)
[2018-03-21] MEDS ORDERED: HYDROmorphONE 2 MG TAB PO ×2 (15:57→16:00)
[2018-03-21 17:13] LABS: MAGNESIUM 1.8 mg/dl (1.7-2.5)
[2018-03-21] MEDS: SOD FERRIC GLUC COMPLX 125 MG in SOD CHLORIDE 0.9% 100 ML IVPB (17:30)
[2018-03-21] MEDS: AMITRIPTYLINE 25 MG TAB PO (20:23)
[2018-03-21 21:51] LABS: ADD UMIC YES; UR ASCORBIC ACID NEGATIVE (NEGATIVE); UR BILIRUBIN (Dip) NEGATIVE (NEGATIVE); UR BLOOD (Dip) 1+ mg/dL (NEGATIVE); UR CLARITY SLIGHTLY CLOUDY (CLEAR); UR COLOR YELLOW (YELLOW); UR GLUCOSE (Dip) NEGATIVE (NEGATIVE); UR KETONES (Dip) NEGATIVE (NEGATIVE); UR LEUKOCYTE ESTERASE (Dip) NEGATIVE Leu/ul (NEGATIVE); UR NITRITE (Dip) NEGATIVE (NEGATIVE); UR RBC 1 /HPF (0-5); UR SPECIFIC GRAVITY (Dip) 1.016 (1.003-1.030); UR SQUAMOUS EPITHELIAL CELL FEW /HPF (FEW); UR TOTAL PROTEIN (Dip) NEGATIVE (NEGATIVE); UR UROBILINOGEN (Dip) 1+ mg/dL (NEGATIVE); UR WBC 2 /HPF (0-5)
[2018-03-22] MEDS: VANCOMYCIN 1 GM 250 ML IVPB ×2 (00:53→13:11)
[2018-03-22] MEDS: HYDROmorphONE 2 MG TAB PO ×4 (04:26→22:33)
[2018-03-22] MEDS: BACLOFEN 10 MG TAB PO ×3 (05:25→22:34)
[2018-03-22] MEDS: PANTOPRAZOLE (EC) 40 MG TAB PO (05:25)
[2018-03-22] MEDS: HYDROCODONE/APAP (5/325) TAB PO (05:25)
[2018-03-22] MEDS: CIPROFLOXACIN 500 MG TAB PO ×2 (05:26→17:19)
[2018-03-22] MEDS: ALPRAZOLAM 0.25 MG TAB PO ×2 (05:29→22:33)
[2018-03-22 05:57] LABS: ADD MAN DIFF? NO
[2018-03-22 06:04] LABS: WHITE BLOOD COUNT 3.3 10^3/ul (4.8-10.8)
[2018-03-22 06:04] LABS: BASOPHILS % 0.6 % (0.0-2.0); EOSINOPHILS # 0.1 10^3/ul (0.0-0.5); EOSINOPHILS % 1.8 % (0.0-7.0); HEMATOCRIT 30.3 % (37.0-47.0); HEMOGLOBIN 9.2 g/dl (12.0-16.0); LYMPHOCYTES # 1.5 10^3/ul (0.8-2.9); LYMPHOCYTES % 44.8 % (15.0-51.0); MEAN CORPUSCULAR HEMOGLOBIN 25.7 pg (29.0-33.0); MEAN CORPUSCULAR HGB CONC 30.4 g/dl (32.0-37.0); MEAN CORPUSCULAR VOLUME 84.6 fl (82.0-101.0); MEAN PLATELET VOLUME 10.8 fl (7.4-10.4); MONOCYTE # 0.3 10^3/ul (0.3-0.9); MONOCYTES % 9.7 % (0.0-11.0); NEUTROPHIL # 1.4 10^3/ul (1.6-7.5); NEUTROPHILS % 42.8 % (39.0-77.0); PLATELET COUNT 107 10^3/UL (140-415); RED BLOOD COUNT 3.58 10^6/ul (4.20-5.40); RED CELL DISTRIBUTION WIDTH 16.4 % (11.5-14.5)
[2018-03-22 06:28] LABS: ANION GAP 8 (8-16); BLOOD UREA NITROGEN 7 mg/dl (7-20); CALCIUM 8.4 mg/dl (8.4-10.2); CARBON DIOXIDE 25 mmol/L (21-31); CHLORIDE 113 mmol/L (97-110); CREATININE 0.54 mg/dl (0.44-1.00); GLUCOSE 99 mg/dl (70-220); POTASSIUM 4.2 mmol/L (3.5-5.1); SODIUM 142 mmol/L (135-144)
[2018-03-22] MEDS: ENOXAPARIN 30 MG/0.3 ML SYG SC (09:00)
[2018-03-22] MEDS: GABAPENTIN 300 MG CAP PO ×2 (09:01→20:37)
[2018-03-22] MEDS: CHOLECALCIFEROL 1,000 UNIT TAB PO (09:01)
[2018-03-22] MEDS: PENTOXIFYLLINE (SR) 400 MG TAB PO ×3 (09:02→20:37)
[2018-03-22] MEDS: DOCUSATE SODIUM 100 MG CAP PO ×2 (09:02→20:37)
[2018-03-22] MEDS: METOPROLOL 25 MG TAB PO ×2 (09:02→20:37)
[2018-03-22] MEDS: LEVETIRACETAM 500 MG TAB PO ×2 (09:02→20:37)
[2018-03-22] MEDS: NICOTINE (14 MG/24 HR) PATCH TRANSDERM (09:03)
[2018-03-22] MEDS: FENTAnyl PATCH 75 MCG/HR TRANSDERM (10:23)
[2018-03-22] MEDS: CELECOXIB 100 MG CAP PO ×2 (12:18→20:37)
[2018-03-22] MEDS: SOD FERRIC GLUC COMPLX 125 MG in SOD CHLORIDE 0.9% 100 ML IVPB (17:19)
[2018-03-22] MEDS: AMITRIPTYLINE 25 MG TAB PO (20:37)
[2018-03-23] MEDS: VANCOMYCIN 1 GM 250 ML IVPB ×2 (01:15→13:19)
[2018-03-23] MEDS: CIPROFLOXACIN 500 MG TAB PO ×2 (06:01→18:30)
[2018-03-23] MEDS: BACLOFEN 10 MG TAB PO ×3 (06:01→21:39)
[2018-03-23] MEDS: ALPRAZOLAM 0.25 MG TAB PO ×2 (06:01→21:39)
[2018-03-23] MEDS: HYDROmorphONE 2 MG TAB PO ×3 (06:02→18:30)
[2018-03-23] MEDS: PANTOPRAZOLE (EC) 40 MG TAB PO (06:02)
[2018-03-23] MEDS: METOPROLOL 25 MG TAB PO ×2 (08:52→21:40)
[2018-03-23] MEDS: DOCUSATE SODIUM 100 MG CAP PO ×2 (08:52→21:41)
[2018-03-23] MEDS: NICOTINE (14 MG/24 HR) PATCH TRANSDERM (08:52)
[2018-03-23] MEDS: CELECOXIB 100 MG CAP PO ×2 (08:52→21:39)
[2018-03-23] MEDS: CHOLECALCIFEROL 1,000 UNIT TAB PO (08:52)
[2018-03-23] MEDS: LEVETIRACETAM 500 MG TAB PO ×2 (08:52→21:40)
[2018-03-23] MEDS: GABAPENTIN 300 MG CAP PO ×2 (08:53→21:39)
[2018-03-23] MEDS: PENTOXIFYLLINE (SR) 400 MG TAB PO ×3 (08:53→21:39)
[2018-03-23] MEDS: ENOXAPARIN 30 MG/0.3 ML SYG SC (08:53)
[2018-03-23] MEDS: SOD FERRIC GLUC COMPLX 125 MG in SOD CHLORIDE 0.9% 100 ML IVPB (17:28)
[2018-03-23] MEDS: AMITRIPTYLINE 25 MG TAB PO (21:39)
[2018-03-24] MEDS: VANCOMYCIN 1 GM 250 ML IVPB ×2 (00:59→12:48)
[2018-03-24] MEDS: HYDROmorphONE 2 MG TAB PO ×4 (01:01→21:10)
[2018-03-24] MEDS: PANTOPRAZOLE (EC) 40 MG TAB PO (05:43)
[2018-03-24] MEDS: BACLOFEN 10 MG TAB PO ×3 (05:43→21:08)
[2018-03-24] MEDS: CIPROFLOXACIN 500 MG TAB PO ×2 (05:44→18:02)
[2018-03-24] MEDS: ALPRAZOLAM 0.25 MG TAB PO ×2 (05:44→21:08)
[2018-03-24 06:01] LABS: ADD MAN DIFF? NO
[2018-03-24 06:06] LABS: WHITE BLOOD COUNT 3.9 10^3/ul (4.8-10.8)
[2018-03-24 06:06] LABS: BASOPHILS % 0.8 % (0.0-2.0); EOSINOPHILS # 0.1 10^3/ul (0.0-0.5); EOSINOPHILS % 1.8 % (0.0-7.0); HEMATOCRIT 30.8 % (37.0-47.0); HEMOGLOBIN 9.3 g/dl (12.0-16.0); LYMPHOCYTES # 1.7 10^3/ul (0.8-2.9); LYMPHOCYTES % 44.7 % (15.0-51.0); MEAN CORPUSCULAR HEMOGLOBIN 25.4 pg (29.0-33.0); MEAN CORPUSCULAR HGB CONC 30.2 g/dl (32.0-37.0); MEAN CORPUSCULAR VOLUME 84.2 fl (82.0-101.0); MEAN PLATELET VOLUME 10.2 fl (7.4-10.4); MONOCYTE # 0.5 10^3/ul (0.3-0.9); MONOCYTES % 11.9 % (0.0-11.0); NEUTROPHIL # 1.6 10^3/ul (1.6-7.5); NEUTROPHILS % 40.5 % (39.0-77.0); PLATELET COUNT 122 10^3/UL (140-415); RED BLOOD COUNT 3.66 10^6/ul (4.20-5.40); RED CELL DISTRIBUTION WIDTH 16.8 % (11.5-14.5)
[2018-03-24] MEDS: CELECOXIB 100 MG CAP PO ×2 (08:49→21:09)
[2018-03-24] MEDS: DOCUSATE SODIUM 100 MG CAP PO ×2 (08:49→21:08)
[2018-03-24] MEDS: CHOLECALCIFEROL 1,000 UNIT TAB PO (08:50)
[2018-03-24] MEDS: METOPROLOL 25 MG TAB PO ×2 (08:50→21:09)
[2018-03-24] MEDS: PENTOXIFYLLINE (SR) 400 MG TAB PO ×3 (08:50→21:08)
[2018-03-24] MEDS: LEVETIRACETAM 500 MG TAB PO ×2 (08:50→21:08)
[2018-03-24] MEDS: GABAPENTIN 300 MG CAP PO ×2 (08:51→21:07)
[2018-03-24] MEDS: NICOTINE (14 MG/24 HR) PATCH TRANSDERM (08:52)
[2018-03-24] MEDS: ENOXAPARIN 30 MG/0.3 ML SYG SC (08:53)
[2018-03-24] MEDS: LIDOCAINE 1% (MPF) 5 ML VIAL SC (16:10)
[2018-03-24] MEDS: AMITRIPTYLINE 25 MG TAB PO (21:09)
[2018-03-25] MEDS: VANCOMYCIN 1 GM 250 ML IVPB ×2 (00:57→15:46)
[2018-03-25] MEDS: HYDROmorphONE 2 MG TAB PO ×3 (04:22→19:37)
[2018-03-25] MEDS: PANTOPRAZOLE (EC) 40 MG TAB PO (06:09)
[2018-03-25] MEDS: CIPROFLOXACIN 500 MG TAB PO ×2 (06:09→17:43)
[2018-03-25] MEDS: BACLOFEN 10 MG TAB PO ×3 (06:09→21:07)
[2018-03-25] MEDS: ENOXAPARIN 30 MG/0.3 ML SYG SC (09:00)
[2018-03-25] MEDS: METOPROLOL 25 MG TAB PO ×2 (09:00→21:09)
[2018-03-25] MEDS: PENTOXIFYLLINE (SR) 400 MG TAB PO ×3 (09:03→21:07)
[2018-03-25] MEDS: CHOLECALCIFEROL 1,000 UNIT TAB PO (09:04)
[2018-03-25] MEDS: GABAPENTIN 300 MG CAP PO ×2 (09:04→21:07)
[2018-03-25] MEDS: DOCUSATE SODIUM 100 MG CAP PO ×2 (09:04→21:08)
[2018-03-25] MEDS: CELECOXIB 100 MG CAP PO ×2 (09:05→21:08)
[2018-03-25] MEDS: LEVETIRACETAM 500 MG TAB PO ×2 (09:05→21:07)
[2018-03-25] MEDS: NICOTINE (14 MG/24 HR) PATCH TRANSDERM (09:06)
[2018-03-25] MEDS: FENTAnyl PATCH 75 MCG/HR TRANSDERM (10:28)
[2018-03-25 12:57] LABS: CREATININE 0.61 mg/dl (0.44-1.00)
[2018-03-25 12:57] LABS: BLOOD UREA NITROGEN 7 mg/dl (7-20); VANCOMYCIN,TROUGH 12.3 ug/ml (10.0-20.0)
[2018-03-25] MEDS: FLUCONAZOLE 150 MG TAB PO (17:44)
[2018-03-25] MEDS: AMITRIPTYLINE 25 MG TAB PO (21:07)
[2018-03-25] MEDS: ALPRAZOLAM 0.25 MG TAB PO (21:15)
[2018-03-26] MEDS: VANCOMYCIN 1 GM 250 ML IVPB ×2 (00:52→13:38)
[2018-03-26] MEDS: PANTOPRAZOLE (EC) 40 MG TAB PO (05:33)
[2018-03-26] MEDS: BACLOFEN 10 MG TAB PO ×2 (05:33→13:38)
[2018-03-26] MEDS: HYDROmorphONE 2 MG TAB PO ×2 (05:33→13:41)
[2018-03-26] MEDS: CIPROFLOXACIN 500 MG TAB PO (05:36)
[2018-03-26] MEDS: METOPROLOL 25 MG TAB PO (09:00)
[2018-03-26] MEDS: ENOXAPARIN 30 MG/0.3 ML SYG SC (09:00)
[2018-03-26] MEDS: DOCUSATE SODIUM 100 MG CAP PO (09:18)
[2018-03-26] MEDS: CHOLECALCIFEROL 1,000 UNIT TAB PO (09:19)
[2018-03-26] MEDS: LEVETIRACETAM 500 MG TAB PO (09:19)
[2018-03-26] MEDS: CELECOXIB 100 MG CAP PO (09:19)
[2018-03-26] MEDS: GABAPENTIN 300 MG CAP PO (09:20)
[2018-03-26] MEDS: PENTOXIFYLLINE (SR) 400 MG TAB PO ×2 (09:20→13:38)
[2018-03-26] MEDS: NICOTINE (14 MG/24 HR) PATCH TRANSDERM (09:22)
== END 2018-03-26 18:20 | disposition home health service (06) | DRG 539 ==
LOC: E/R 13:27 → MS2 16:50
PROC: 02HV33Z Insertion of Infusion Device into Superior Vena Cava, Percutaneous Approach (ICD-10-PCS; principal; 2018-03-24)
DX: M86.162 Other acute osteomyelitis, left tibia and fibula (principal); J18.9 Pneumonia, unspecified organism; I83.213 Varicose veins of right lower extremity with both ulcer of ankle and inflammation; D61.818 Other pancytopenia; L97.319 Non-pressure chronic ulcer of right ankle with unspecified severity; G82.20 Paraplegia, unspecified; M86.662 Other chronic osteomyelitis, left tibia and fibula; I89.0 Lymphedema, not elsewhere classified; I10 Essential (primary) hypertension; G40.909 Epilepsy, unspecified, not intractable, without status epilepticus; G89.4 Chronic pain syndrome; F32.9 Major depressive disorder, single episode, unspecified; Z68.39 Body mass index [BMI] 39.0-39.9, adult; F41.9 Anxiety disorder, unspecified; F17.200 Nicotine dependence, unspecified, uncomplicated; E66.01 Morbid (severe) obesity due to excess calories; E55.9 Vitamin D deficiency, unspecified; M14.679 Charcot's joint, unspecified ankle and foot; Z99.3 Dependence on wheelchair; B95.61 Methicillin susceptible Staphylococcus aureus infection as the cause of diseases classified elsewhere; M17.12 Unilateral primary osteoarthritis, left knee; M62.59 Muscle wasting and atrophy, not elsewhere classified, multiple sites
CPT/HCPCS: 36415; 36569; 71045; 73721; 76937; 80048; 80053; 80061; 80202; 80307; 81001; 82306; 82565; 82607; 82652; 83036; 83540; 83735; 83880; 84100; 84439; 84443; 84520; 85025; 85651; 86140; 87040; 87070; 87086; 93306; 93970; 96374; 97162; 99285-25

== ENCOUNTER 2019-02-03 21:23 | Inpatient (IN) | payer OTHER ==
[2019-02-03] MEDS ORDERED: DOCUSATE SODIUM 100 MG CAP PO (23:00)
[2019-02-03] MEDS ORDERED: ACETAMINOPHEN 325 MG TAB PO (23:00)
[2019-02-03] MEDS ORDERED: MAGNESIUM HYDROXIDE 30ML CUP PO (23:00)
[2019-02-03] MEDS ORDERED: NITROGLYCERIN (SL) 0.4 MG TAB SL (23:00)
[2019-02-03] MEDS ORDERED: VANCOMYCIN IV PER PHARMACY XX (23:00)
[2019-02-03] MEDS ORDERED: ALPRAZOLAM 0.25 MG TAB PO (23:00)
[2019-02-03] MEDS ORDERED: hydrALAzine 20 MG INJ IV (23:00)
[2019-02-03] MEDS ORDERED: ALBUTEROL/IPRATROPIUM (NEB) 3 ML AMP HHN (23:00)
[2019-02-03] MEDS ORDERED: ONDANSETRON 4 MG INJ IV (23:00)
[2019-02-04] MEDS: SOD CHLORIDE 0.45% 1,000 ML IV ×2 (00:20→12:19)
[2019-02-04] MEDS: PIPER-TAZO 3.375 GM IV (PMX) 100 ML IVPB ×4 (00:20→17:58)
[2019-02-04] MEDS: morphine 2 MG INJ IV ×2 (00:20→10:32)
[2019-02-04] MEDS: VANCOMYCIN HCL 2 GM in SOD CHLORIDE 0.9% 500 ML IVPB (02:20)
[2019-02-04] MEDS: LORAZEPAM 2 MG INJ IV (04:01)
[2019-02-04] MEDS: HYDROmorphONE 2 MG TAB PO ×2 (05:01→13:15)
[2019-02-04] MEDS: PANTOPRAZOLE (EC) 40 MG TAB PO (06:05)
[2019-02-04 06:28] LABS: WHITE BLOOD COUNT 3.7 10^3/ul (4.8-10.8)
[2019-02-04 06:28] LABS: HEMATOCRIT 25.4 % (37.0-47.0); HEMOGLOBIN 7.7 g/dl (12.0-16.0); MEAN CORPUSCULAR HEMOGLOBIN 28.5 pg (29.0-33.0); MEAN CORPUSCULAR HGB CONC 30.3 g/dl (32.0-37.0); MEAN CORPUSCULAR VOLUME 94.1 fl (82.0-101.0); PLATELET COUNT 136 10^3/UL (140-415); RED CELL DISTRIBUTION WIDTH 18.1 % (11.5-14.5)
[2019-02-04 06:31] LABS: ADD MAN DIFF? YES; POSITIVE DIFF @See below
[2019-02-04 06:57] LABS: ANION GAP 5 (5-13); BLOOD UREA NITROGEN 13 mg/dl (7-20); CARBON DIOXIDE 22 mmol/L (21-31); CHLORIDE 116 mmol/L (97-110); CHOL/HDL RATIO 3.9 RATIO; CHOLESTEROL 90 mg/dl (100-200); CREATININE 0.61 mg/dl (0.44-1.00); Estimated GFR > 60 mL/min (>60); GLUCOSE 92 mg/dl (70-220); HDL CHOLESTEROL 23 mg/dl (37-92); LDL CHOLESTEROL,CALCULATED 46 mg/dl; MAGNESIUM 1.9 mg/dl (1.7-2.5); PHOSPHORUS 3.8 mg/dl (2.5-4.9); POTASSIUM 3.8 mmol/L (3.5-5.1); SODIUM 143 mmol/L (135-144); TRIGLYCERIDES 103 mg/dl (0-149)
[2019-02-04 07:14] LABS: FREE T4 (FREE THYROXINE) 0.86 ng/dl (0.64-1.79)
[2019-02-04] MEDS ORDERED: NON-FORMULARY/PATIENT OWN MED ([Nicotine (14 Mg/24 Hr)] 1 PATCH) TRANSDERM (09:00)
[2019-02-04 09:05] LABS: ANISOCYTOSIS 1+ (0-0); BAND NEUTROPHILS #M 0.2 10^3/ul (0.0-0.6); BAND NEUTROPHILS % (M) 8 % (0-4); BASOPHILS % (M) 1 % (0-2); EOSINOPHILS % (M) 2 % (0-7); ERYTHROBLAST% (NRBC) (M) 2 % (0-0); GIANT THROMBO% (M) 2 % (0-0); LYMPHOCYTES #M 0.8 10^3/ul (0.8-2.9); LYMPHOCYTES % (M) 24 % (15-51); MONOCYTE #M 0.3 10^3/ul (0.3-0.9); MONOCYTES % (M) 9 % (0-11); OVALOCYTES 2+ (0-0); PLATELET ESTIMATE DECREASED; POLYCHROMASIA 1+ (0-0); SEG NEUT #M 2.1 10^3/ul (1.6-7.5); SEGMENTED NEUTROPHILS (M) % 56 % (39-77); SMUDGE%M 23 % (0-0)
[2019-02-04] MEDS: LEVETIRACETAM 500 MG TAB PO ×3 (09:52→22:18)
[2019-02-04] MEDS: GABAPENTIN 300 MG CAP PO ×3 (09:52→22:18)
[2019-02-04] MEDS: METOPROLOL 25 MG TAB PO ×2 (09:53→21:00)
[2019-02-04] MEDS: HEPARIN 5,000 UNIT/1 ML VIAL SC ×2 (09:53→21:21)
[2019-02-04] MEDS: NICOTINE (14 MG/24 HR) PATCH TRANSDERM (09:54)
[2019-02-04] MEDS: PENTOXIFYLLINE (SR) 400 MG TAB PO ×4 (12:00→22:18)
[2019-02-04] MEDS ORDERED: VANCOMYCIN HCL 1.5 GM in SOD CHLORIDE 0.9% 250 ML IVPB (13:00)
[2019-02-04] MEDS: VANCOMYCIN HCL 1.25 GM in SOD CHLORIDE 0.9% 250 ML IVPB (14:04)
[2019-02-04] MEDS: AMITRIPTYLINE 25 MG TAB PO ×2 (21:19→22:18)
[2019-02-04] MEDS: COLLAGENASE 5 GM (UD JAR) TOP (21:48)
[2019-02-05] MEDS: PIPER-TAZO 3.375 GM IV (PMX) 100 ML IVPB ×5 (00:50→23:52)
[2019-02-05] MEDS: VANCOMYCIN HCL 1.25 GM in SOD CHLORIDE 0.9% 250 ML IVPB ×2 (00:50→11:50)
[2019-02-05] MEDS: SOD CHLORIDE 0.45% 1,000 ML IV ×2 (04:22→14:59)
[2019-02-05] MEDS: PANTOPRAZOLE (EC) 40 MG TAB PO (06:19)
[2019-02-05] MEDS: HYDROmorphONE 2 MG TAB PO (07:36)
[2019-02-05] MEDS: ALPRAZOLAM 0.5 MG TAB PO ×2 (07:57→18:40)
[2019-02-05] MEDS: COLLAGENASE 5 GM (UD JAR) TOP (09:00)
[2019-02-05 09:41] LABS: ADD MAN DIFF? NO
[2019-02-05 09:46] LABS: WHITE BLOOD COUNT 3.4 10^3/ul (4.8-10.8)
[2019-02-05 09:46] LABS: BASOPHILS % 0.6 % (0.0-2.0); EOSINOPHILS % 1.2 % (0.0-7.0); HEMATOCRIT 27.4 % (37.0-47.0); HEMOGLOBIN 8.2 g/dl (12.0-16.0); LYMPHOCYTES # 1.2 10^3/ul (0.8-2.9); MEAN CORPUSCULAR HEMOGLOBIN 28.5 pg (29.0-33.0); MEAN CORPUSCULAR HGB CONC 29.9 g/dl (32.0-37.0); MEAN CORPUSCULAR VOLUME 95.1 fl (82.0-101.0); MEAN PLATELET VOLUME 10.2 fl (7.4-10.4); MONOCYTE # 0.5 10^3/ul (0.3-0.9); MONOCYTES % 13.9 % (0.0-11.0); NEUTROPHIL # 1.7 10^3/ul (1.6-7.5); NUCLEATED RED BLOOD CELLS% 0.6 /100WBC (0.0-0.0); PLATELET COUNT 126 10^3/UL (140-415); RED BLOOD COUNT 2.88 10^6/ul (4.20-5.40)
[2019-02-05] MEDS: LEVETIRACETAM 500 MG TAB PO ×2 (09:58→20:32)
[2019-02-05] MEDS: HEPARIN 5,000 UNIT/1 ML VIAL SC ×2 (09:58→20:34)
[2019-02-05] MEDS: NICOTINE (14 MG/24 HR) PATCH TRANSDERM (09:59)
[2019-02-05] MEDS: METOPROLOL 25 MG TAB PO ×2 (09:59→20:36)
[2019-02-05] MEDS: PENTOXIFYLLINE (SR) 400 MG TAB PO ×3 (09:59→20:33)
[2019-02-05] MEDS: GABAPENTIN 300 MG CAP PO ×2 (09:59→20:32)
[2019-02-05 10:03] LABS: ANION GAP 6 (5-13); BLOOD UREA NITROGEN 8 mg/dl (7-20); CALCIUM 7.8 mg/dl (8.4-10.2); CARBON DIOXIDE 22 mmol/L (21-31); CHLORIDE 115 mmol/L (97-110); CREATININE 0.53 mg/dl (0.44-1.00); Estimated GFR > 60 mL/min (>60); GLUCOSE 73 mg/dl (70-220); POTASSIUM 3.6 mmol/L (3.5-5.1); SODIUM 143 mmol/L (135-144)
[2019-02-05] MEDS: traMADol 50 MG TAB PO (18:40)
[2019-02-05] MEDS: AMITRIPTYLINE 25 MG TAB PO (20:33)
[2019-02-06 00:35] LABS: VANCOMYCIN,TROUGH 24.4 ug/ml (10.0-20.0)
[2019-02-06] MEDS: SOD CHLORIDE 0.45% 1,000 ML IV ×2 (01:56→17:39)
[2019-02-06] MEDS: PANTOPRAZOLE (EC) 40 MG TAB PO (06:05)
[2019-02-06] MEDS: PIPER-TAZO 3.375 GM IV (PMX) 100 ML IVPB ×3 (06:06→18:18)
[2019-02-06] MEDS: traMADol 50 MG TAB PO (06:06)
[2019-02-06] MEDS: COLLAGENASE 5 GM (UD JAR) TOP (07:53)
[2019-02-06 08:15] LABS: ADD MAN DIFF? NO
[2019-02-06 08:21] LABS: BASOPHILS % 0.3 % (0.0-2.0); EOSINOPHILS # 0.1 10^3/ul (0.0-0.5); EOSINOPHILS % 1.9 % (0.0-7.0); HEMATOCRIT 25.1 % (37.0-47.0); HEMOGLOBIN 7.6 g/dl (12.0-16.0); LYMPHOCYTES # 1.5 10^3/ul (0.8-2.9); LYMPHOCYTES % 41.3 % (15.0-51.0); MEAN CORPUSCULAR HEMOGLOBIN 28.1 pg (29.0-33.0); MEAN CORPUSCULAR HGB CONC 30.3 g/dl (32.0-37.0); MEAN PLATELET VOLUME 10.2 fl (7.4-10.4); MONOCYTE # 0.3 10^3/ul (0.3-0.9); MONOCYTES % 7.9 % (0.0-11.0); NEUTROPHIL # 1.8 10^3/ul (1.6-7.5); NEUTROPHILS % 48.1 % (39.0-77.0); PLATELET COUNT 142 10^3/UL (140-415)
[2019-02-06 08:21] LABS: WHITE BLOOD COUNT 3.7 10^3/ul (4.8-10.8)
[2019-02-06 08:44] LABS: ANION GAP 4 (5-13); BLOOD UREA NITROGEN 9 mg/dl (7-20); CALCIUM 7.7 mg/dl (8.4-10.2); CARBON DIOXIDE 22 mmol/L (21-31); CHLORIDE 116 mmol/L (97-110); CREATININE 0.58 mg/dl (0.44-1.00); Estimated GFR > 60 mL/min (>60); GLUCOSE 108 mg/dl (70-220); POTASSIUM 3.2 mmol/L (3.5-5.1); SODIUM 142 mmol/L (135-144)
[2019-02-06] MEDS: HEPARIN 5,000 UNIT/1 ML VIAL SC ×2 (09:00→21:00)
[2019-02-06] MEDS: PENTOXIFYLLINE (SR) 400 MG TAB PO ×3 (09:19→20:52)
[2019-02-06] MEDS: GABAPENTIN 300 MG CAP PO ×2 (09:19→20:52)
[2019-02-06] MEDS: ALPRAZOLAM 0.5 MG TAB PO (09:20)
[2019-02-06] MEDS: LEVETIRACETAM 500 MG TAB PO ×2 (09:20→20:52)
[2019-02-06] MEDS: METOPROLOL 25 MG TAB PO ×2 (09:23→20:53)
[2019-02-06] MEDS: NICOTINE (14 MG/24 HR) PATCH TRANSDERM (09:24)
[2019-02-06] MEDS: VANCOMYCIN HCL 1.25 GM in SOD CHLORIDE 0.9% 250 ML IVPB (12:40)
[2019-02-06] MEDS: POTASSIUM CHLORIDE (SR) 20 MEQ TAB PO (12:40)
[2019-02-06] MEDS: HYDROCODONE/APAP (5/325) TAB PO ×2 (12:47→20:51)
[2019-02-06] MEDS: AMITRIPTYLINE 25 MG TAB PO (20:50)
[2019-02-07] MEDS: PIPER-TAZO 3.375 GM IV (PMX) 100 ML IVPB ×6 (00:16→17:42)
[2019-02-07] MEDS: PANTOPRAZOLE (EC) 40 MG TAB PO ×2 (06:06→08:34)
[2019-02-07] MEDS: ALPRAZOLAM 0.5 MG TAB PO ×2 (06:18→20:14)
[2019-02-07 07:20] LABS: ADD MAN DIFF? NO
[2019-02-07 07:22] LABS: WHITE BLOOD COUNT 3.3 10^3/ul (4.8-10.8)
[2019-02-07 07:22] LABS: BASOPHILS % 0.6 % (0.0-2.0); EOSINOPHILS # 0.1 10^3/ul (0.0-0.5); EOSINOPHILS % 2.1 % (0.0-7.0); HEMATOCRIT 25.9 % (37.0-47.0); HEMOGLOBIN 7.7 g/dl (12.0-16.0); LYMPHOCYTES # 1.5 10^3/ul (0.8-2.9); LYMPHOCYTES % 44.1 % (15.0-51.0); MEAN CORPUSCULAR HEMOGLOBIN 27.6 pg (29.0-33.0); MEAN CORPUSCULAR HGB CONC 29.7 g/dl (32.0-37.0); MEAN CORPUSCULAR VOLUME 92.8 fl (82.0-101.0); MEAN PLATELET VOLUME 9.9 fl (7.4-10.4); MONOCYTE # 0.4 10^3/ul (0.3-0.9); MONOCYTES % 10.6 % (0.0-11.0); NEUTROPHIL # 1.4 10^3/ul (1.6-7.5); NEUTROPHILS % 42.3 % (39.0-77.0); PLATELET COUNT 142 10^3/UL (140-415); RED BLOOD COUNT 2.79 10^6/ul (4.20-5.40); RED CELL DISTRIBUTION WIDTH 18.2 % (11.5-14.5)
[2019-02-07 07:55] LABS: ANION GAP 5 (5-13); BLOOD UREA NITROGEN 8 mg/dl (7-20); CARBON DIOXIDE 21 mmol/L (21-31); CHLORIDE 118 mmol/L (97-110); CREATININE 0.58 mg/dl (0.44-1.00); Estimated GFR > 60 mL/min (>60); GLUCOSE 107 mg/dl (70-220); POTASSIUM 3.7 mmol/L (3.5-5.1); SODIUM 144 mmol/L (135-144)
[2019-02-07] MEDS: PENTOXIFYLLINE (SR) 400 MG TAB PO ×3 (08:34→20:13)
[2019-02-07] MEDS: NICOTINE (14 MG/24 HR) PATCH TRANSDERM (08:34)
[2019-02-07] MEDS: LEVETIRACETAM 500 MG TAB PO ×2 (08:34→20:12)
[2019-02-07] MEDS: COLLAGENASE 5 GM (UD JAR) TOP (08:34)
[2019-02-07] MEDS: GABAPENTIN 300 MG CAP PO ×2 (08:34→20:13)
[2019-02-07] MEDS: HEPARIN 5,000 UNIT/1 ML VIAL SC ×2 (08:37→20:15)
[2019-02-07] MEDS: METOPROLOL 25 MG TAB PO ×2 (08:40→20:13)
[2019-02-07] MEDS: VANCOMYCIN HCL 1.25 GM in SOD CHLORIDE 0.9% 250 ML IVPB (12:24)
[2019-02-07] MEDS: AMITRIPTYLINE 25 MG TAB PO (20:12)
[2019-02-07] MEDS: SOD CHLORIDE 0.45% 1,000 ML IV (21:53)
[2019-02-07] MEDS: HYDROCODONE/APAP (5/325) TAB PO (21:56)
[2019-02-08] MEDS: PIPER-TAZO 3.375 GM IV (PMX) 100 ML IVPB ×4 (00:43→18:00)
[2019-02-08] MEDS: LORAZEPAM 2 MG INJ IV ×2 (00:43→08:57)
[2019-02-08] MEDS: HYDROCODONE/APAP (5/325) TAB PO (04:11)
[2019-02-08] MEDS: PANTOPRAZOLE (EC) 40 MG TAB PO (05:40)
[2019-02-08 06:39] LABS: ADD MAN DIFF? NO
[2019-02-08 06:41] LABS: WHITE BLOOD COUNT 4.4 10^3/ul (4.8-10.8)
[2019-02-08 06:41] LABS: BASOPHILS % 0.2 % (0.0-2.0); EOSINOPHILS # 0.1 10^3/ul (0.0-0.5); EOSINOPHILS % 1.6 % (0.0-7.0); HEMATOCRIT 24.6 % (37.0-47.0); HEMOGLOBIN 7.4 g/dl (12.0-16.0); LYMPHOCYTES % 44.1 % (15.0-51.0); MEAN CORPUSCULAR HEMOGLOBIN 27.7 pg (29.0-33.0); MEAN CORPUSCULAR HGB CONC 30.1 g/dl (32.0-37.0); MEAN CORPUSCULAR VOLUME 92.1 fl (82.0-101.0); MONOCYTE # 0.4 10^3/ul (0.3-0.9); MONOCYTES % 7.9 % (0.0-11.0); NEUTROPHILS % 45.5 % (39.0-77.0); PLATELET COUNT 153 10^3/UL (140-415); RED BLOOD COUNT 2.67 10^6/ul (4.20-5.40); RED CELL DISTRIBUTION WIDTH 18.4 % (11.5-14.5)
[2019-02-08 08:03] LABS: ANION GAP 5 (5-13); BLOOD UREA NITROGEN 7 mg/dl (7-20); CALCIUM 8.2 mg/dl (8.4-10.2); CARBON DIOXIDE 21 mmol/L (21-31); CHLORIDE 116 mmol/L (97-110); CREATININE 0.62 mg/dl (0.44-1.00); Estimated GFR > 60 mL/min (>60); GLUCOSE 76 mg/dl (70-220); POTASSIUM 3.5 mmol/L (3.5-5.1); SODIUM 142 mmol/L (135-144)
[2019-02-08] MEDS: GABAPENTIN 300 MG CAP PO ×2 (08:36→20:32)
[2019-02-08] MEDS: PENTOXIFYLLINE (SR) 400 MG TAB PO ×3 (08:37→20:33)
[2019-02-08] MEDS: LEVETIRACETAM 500 MG TAB PO ×2 (08:37→20:32)
[2019-02-08] MEDS: NICOTINE (14 MG/24 HR) PATCH TRANSDERM (08:38)
[2019-02-08] MEDS: METOPROLOL 25 MG TAB PO ×2 (08:41→20:33)
[2019-02-08] MEDS: HEPARIN 5,000 UNIT/1 ML VIAL SC ×2 (08:50→20:35)
[2019-02-08] MEDS: COLLAGENASE 5 GM (UD JAR) TOP (11:27)
[2019-02-08] MEDS: SOD CHLORIDE 0.45% 1,000 ML IV (11:38)
[2019-02-08] MEDS: VANCOMYCIN HCL 1.25 GM in SOD CHLORIDE 0.9% 250 ML IVPB (12:22)
[2019-02-08] MEDS: NACL 0.9% 3 ML SYG IV (20:29)
[2019-02-08] MEDS: AMITRIPTYLINE 25 MG TAB PO (20:33)
[2019-02-09] MEDS: PIPER-TAZO 3.375 GM IV (PMX) 100 ML IVPB ×3 (00:13→12:26)
[2019-02-09] MEDS: LORAZEPAM 2 MG INJ IV ×2 (00:25→09:13)
[2019-02-09] MEDS: SOD CHLORIDE 0.45% 1,000 ML IV ×2 (00:40→06:12)
[2019-02-09 06:07] LABS: ADD MAN DIFF? NO
[2019-02-09] MEDS: PANTOPRAZOLE (EC) 40 MG TAB PO (06:11)
[2019-02-09 06:28] LABS: WHITE BLOOD COUNT 4.4 10^3/ul (4.8-10.8)
[2019-02-09 06:28] LABS: BASOPHILS % 0.5 % (0.0-2.0); EOSINOPHILS # 0.1 10^3/ul (0.0-0.5); EOSINOPHILS % 2.5 % (0.0-7.0); HEMATOCRIT 24.9 % (37.0-47.0); HEMOGLOBIN 7.7 g/dl (12.0-16.0); LYMPHOCYTES % 46.1 % (15.0-51.0); MEAN CORPUSCULAR HEMOGLOBIN 28.6 pg (29.0-33.0); MEAN CORPUSCULAR HGB CONC 30.9 g/dl (32.0-37.0); MEAN CORPUSCULAR VOLUME 92.6 fl (82.0-101.0); MEAN PLATELET VOLUME 9.9 fl (7.4-10.4); MONOCYTE # 0.4 10^3/ul (0.3-0.9); NEUTROPHIL # 1.9 10^3/ul (1.6-7.5); NEUTROPHILS % 42.4 % (39.0-77.0); PLATELET COUNT 160 10^3/UL (140-415); RED BLOOD COUNT 2.69 10^6/ul (4.20-5.40); RED CELL DISTRIBUTION WIDTH 18.2 % (11.5-14.5)
[2019-02-09 07:08] LABS: ANION GAP 6 (5-13); BLOOD UREA NITROGEN 6 mg/dl (7-20); CALCIUM 8.1 mg/dl (8.4-10.2); CARBON DIOXIDE 19 mmol/L (21-31); CHLORIDE 117 mmol/L (97-110); CREATININE 0.64 mg/dl (0.44-1.00); Estimated GFR > 60 mL/min (>60); GLUCOSE 81 mg/dl (70-220); POTASSIUM 3.6 mmol/L (3.5-5.1); SODIUM 142 mmol/L (135-144)
[2019-02-09] MEDS: HEPARIN 5,000 UNIT/1 ML VIAL SC (09:00)
[2019-02-09] MEDS: COLLAGENASE 5 GM (UD JAR) TOP (09:04)
[2019-02-09] MEDS: PENTOXIFYLLINE (SR) 400 MG TAB PO ×3 (09:04→20:56)
[2019-02-09] MEDS: GABAPENTIN 300 MG CAP PO ×2 (09:04→20:56)
[2019-02-09] MEDS: NICOTINE (14 MG/24 HR) PATCH TRANSDERM (09:04)
[2019-02-09] MEDS: METOPROLOL 25 MG TAB PO ×2 (09:05→20:56)
[2019-02-09] MEDS: LEVETIRACETAM 500 MG TAB PO ×2 (09:05→20:54)
[2019-02-09] MEDS: LOPERAMIDE 2 MG CAP PO (09:14)
[2019-02-09 13:18] LABS: VANCOMYCIN,TROUGH 9.5 ug/ml (10.0-20.0)
[2019-02-09] MEDS: VANCOMYCIN HCL 1.25 GM in SOD CHLORIDE 0.9% 250 ML IVPB (13:46)
[2019-02-09] MEDS: ALPRAZOLAM 0.5 MG TAB PO (17:34)
[2019-02-09] MEDS: RIVAROXABAN 10 MG TABLET PO (17:34)
[2019-02-09] MEDS: traMADol 50 MG TAB PO (20:56)
[2019-02-09] MEDS: AMITRIPTYLINE 25 MG TAB PO (20:56)
[2019-02-10] MEDS: PANTOPRAZOLE (EC) 40 MG TAB PO (06:06)
[2019-02-10 07:49] LABS: ADD MAN DIFF? NO
[2019-02-10 07:52] LABS: BASOPHILS % 0.9 % (0.0-2.0); EOSINOPHILS # 0.1 10^3/ul (0.0-0.5); EOSINOPHILS % 2.6 % (0.0-7.0); LYMPHOCYTES # 1.8 10^3/ul (0.8-2.9); MEAN CORPUSCULAR HEMOGLOBIN 28.3 pg (29.0-33.0); MEAN CORPUSCULAR HGB CONC 30.8 g/dl (32.0-37.0); MEAN CORPUSCULAR VOLUME 91.9 fl (82.0-101.0); MEAN PLATELET VOLUME 9.7 fl (7.4-10.4); MONOCYTE # 0.5 10^3/ul (0.3-0.9); MONOCYTES % 9.8 % (0.0-11.0); NEUTROPHIL # 2.2 10^3/ul (1.6-7.5); NEUTROPHILS % 47.5 % (39.0-77.0); PLATELET COUNT 162 10^3/UL (140-415); RED BLOOD COUNT 2.83 10^6/ul (4.20-5.40); RED CELL DISTRIBUTION WIDTH 17.9 % (11.5-14.5)
[2019-02-10 07:52] LABS: WHITE BLOOD COUNT 4.7 10^3/ul (4.8-10.8)
[2019-02-10 08:12] LABS: ANION GAP 8 (5-13); BLOOD UREA NITROGEN 6 mg/dl (7-20); CALCIUM 8.3 mg/dl (8.4-10.2); CARBON DIOXIDE 19 mmol/L (21-31); CHLORIDE 116 mmol/L (97-110); CREATININE 0.66 mg/dl (0.44-1.00); Estimated GFR > 60 mL/min (>60); GLUCOSE 91 mg/dl (70-220); POTASSIUM 3.2 mmol/L (3.5-5.1); SODIUM 143 mmol/L (135-144)
[2019-02-10] MEDS: GABAPENTIN 300 MG CAP PO ×2 (09:50→20:52)
[2019-02-10] MEDS: LEVETIRACETAM 500 MG TAB PO ×2 (09:50→20:50)
[2019-02-10] MEDS: METOPROLOL 25 MG TAB PO ×2 (09:50→21:05)
[2019-02-10] MEDS: COLLAGENASE 5 GM (UD JAR) TOP (09:50)
[2019-02-10] MEDS: PENTOXIFYLLINE (SR) 400 MG TAB PO ×3 (09:50→20:52)
[2019-02-10] MEDS: NICOTINE (14 MG/24 HR) PATCH TRANSDERM (09:51)
[2019-02-10] MEDS: traMADol 50 MG TAB PO ×2 (09:51→17:47)
[2019-02-10] MEDS: LORAZEPAM 2 MG INJ IV ×2 (12:40→21:00)
[2019-02-10] MEDS: LOPERAMIDE 2 MG CAP PO (12:43)
[2019-02-10] MEDS: ALPRAZOLAM 0.5 MG TAB PO (16:47)
[2019-02-10] MEDS: RIVAROXABAN 10 MG TABLET PO (17:46)
[2019-02-10] MEDS: AMITRIPTYLINE 25 MG TAB PO (20:52)
[2019-02-10 21:43] LABS: IMMEDIATE SPIN CROSSMATCH 1 2
[2019-02-11] MEDS: POTASSIUM CHLORIDE (SR) 20 MEQ TAB PO (02:08)
[2019-02-11] MEDS: PANTOPRAZOLE (EC) 40 MG TAB PO (06:38)
[2019-02-11] MEDS: NICOTINE (14 MG/24 HR) PATCH TRANSDERM (09:11)
[2019-02-11] MEDS: PENTOXIFYLLINE (SR) 400 MG TAB PO ×2 (09:11→13:00)
[2019-02-11] MEDS: LEVETIRACETAM 500 MG TAB PO (09:11)
[2019-02-11] MEDS: METOPROLOL 25 MG TAB PO (09:12)
[2019-02-11] MEDS: GABAPENTIN 300 MG CAP PO (09:12)
[2019-02-11] MEDS: COLLAGENASE 5 GM (UD JAR) TOP (09:13)
[2019-02-11 09:24] LABS: ADD MAN DIFF? NO
[2019-02-11 09:25] LABS: EOSINOPHILS # 0.1 10^3/ul (0.0-0.5); EOSINOPHILS % 1.9 % (0.0-7.0); HEMATOCRIT 28.5 % (37.0-47.0); HEMOGLOBIN 8.9 g/dl (12.0-16.0); LYMPHOCYTES # 1.3 10^3/ul (0.8-2.9); MEAN CORPUSCULAR HEMOGLOBIN 28.3 pg (29.0-33.0); MEAN CORPUSCULAR HGB CONC 31.2 g/dl (32.0-37.0); MEAN CORPUSCULAR VOLUME 90.5 fl (82.0-101.0); MEAN PLATELET VOLUME 9.4 fl (7.4-10.4); MONOCYTE # 0.4 10^3/ul (0.3-0.9); MONOCYTES % 10.3 % (0.0-11.0); NEUTROPHIL # 2.3 10^3/ul (1.6-7.5); NEUTROPHILS % 55.3 % (39.0-77.0); PLATELET COUNT 149 10^3/UL (140-415); RED BLOOD COUNT 3.15 10^6/ul (4.20-5.40); RED CELL DISTRIBUTION WIDTH 17.3 % (11.5-14.5)
[2019-02-11 09:25] LABS: WHITE BLOOD COUNT 4.2 10^3/ul (4.8-10.8)
[2019-02-11 09:45] LABS: ANION GAP 8 (5-13); BLOOD UREA NITROGEN 5 mg/dl (7-20); CALCIUM 8.3 mg/dl (8.4-10.2); CARBON DIOXIDE 20 mmol/L (21-31); CHLORIDE 117 mmol/L (97-110); CREATININE 0.58 mg/dl (0.44-1.00); Estimated GFR > 60 mL/min (>60); GLUCOSE 103 mg/dl (70-220); POTASSIUM 3.6 mmol/L (3.5-5.1); SODIUM 145 mmol/L (135-144)
[2019-02-11] MEDS: traMADol 50 MG TAB PO (14:30)
[2019-02-11] MEDS: RIVAROXABAN 10 MG TABLET PO (18:13)
== END 2019-02-11 18:53 | DRG 603 ==
LOC: 5EC 02-04 01:50 → 2NE 21:23
PROC: 30233N1 Transfusion of Nonautologous Red Blood Cells into Peripheral Vein, Percutaneous Approach (ICD-10-PCS; principal; 2019-02-10)
DX: L03.116 Cellulitis of left lower limb (principal); Z68.42 Body mass index [BMI] 45.0-49.9, adult; F32.3 Major depressive disorder, single episode, severe with psychotic features; F11.20 Opioid dependence, uncomplicated; F13.20 Sedative, hypnotic or anxiolytic dependence, uncomplicated; L97.322 Non-pressure chronic ulcer of left ankle with fat layer exposed; G82.20 Paraplegia, unspecified; Z71.3 Dietary counseling and surveillance; E66.01 Morbid (severe) obesity due to excess calories; G89.4 Chronic pain syndrome; I10 Essential (primary) hypertension; I73.9 Peripheral vascular disease, unspecified; I87.8 Other specified disorders of veins; G40.909 Epilepsy, unspecified, not intractable, without status epilepticus; B18.2 Chronic viral hepatitis C; I87.2 Venous insufficiency (chronic) (peripheral); I89.0 Lymphedema, not elsewhere classified; D63.8 Anemia in other chronic diseases classified elsewhere; Z87.891 Personal history of nicotine dependence; Z99.3 Dependence on wheelchair; Z86.73 Personal history of transient ischemic attack (TIA), and cerebral infarction without residual deficits; Z90.49 Acquired absence of other specified parts of digestive tract
CPT/HCPCS: 36430; 70450; 80048; 80061; 80202; 82962; 83036; 83735; 84100; 84439; 84443; 85025; 86850; 86900; 86901; 86920; 87081; 92526; 92610; 93005; 93306; 97110; 97163; 97530